=== PATIENT | female | born 1965 | race Caucasian/White ===

== ENCOUNTER 2018-09-04 12:01 | Inpatient (IN) | payer BC ==
[2018-09-04] MEDS ORDERED: BUPIVACAINE HCL/PF (5 MG/ML) 30 ML VIAL IJ ONE (14:10)
[2018-09-04] MEDS ORDERED: MIDAZOLAM HCL 2 MG/2 ML SINGLE DOSE VIAL ONE (14:10)
[2018-09-04] MEDS ORDERED: PROPOFOL 20 ML ONE ×2 (14:56)
[2018-09-04] MEDS ORDERED: ROCURONIUM BROMIDE 50 MG/5 ML VIAL ONE ×2 (14:56→15:00)
[2018-09-04] MEDS ORDERED: fentaNYL CITRATE 250 MCG/5 ML VIAL ONE (14:56)
[2018-09-04] MEDS ORDERED: LIDOCAINE HCL/PF 2% SDV 5ML VIAL ONE (15:00)
[2018-09-04] MEDS ORDERED: BUPIVACAINE HCL 0.25% 125 MG/50 ML VIAL ONE (15:04)
[2018-09-04] MEDS ORDERED: DEXAMETHASONE SOD PHOSPHATE 4 MG/1 ML VIAL ONE (15:40)
[2018-09-04] MEDS ORDERED: KETOROLAC TROMETHAMINE 30 MG/1 ML VIAL ONE (15:40)
[2018-09-04] MEDS ORDERED: ceFAZolin SODIUM 1 GM VIAL ONE (15:40)
[2018-09-04] MEDS ORDERED: ONDANSETRON 4 MG/2 ML VIAL ONE (15:40)
[2018-09-04] MEDS ORDERED: GLYCOPYRROLATE 0.2 MG/1 ML VIAL ONE (16:31)
[2018-09-04] MEDS ORDERED: NEOSTIGMINE METHYLSULFATE 0.5 MG/ML - 10 ML MDV ONE (16:31)
[2018-09-04] MEDS ORDERED: ONDANSETRON 4 MG/2 ML VIAL IVPUSH PRN ×2 (16:55→17:06)
--- NOTE | 2018-09-04 17:01 | OP ---
Operative Note - Note: Operative Date: 09/04/18 Pre-Operative Diagnosis: Morbid Obesity. Elevated LFT Operation: Laparoscopic Vertical Sleeve Gastrectomy. Wedge Bopsy of Left lobe of Liver. Diagnostic Laparoscopy Findings: Greater curve sleeve gastrectomy with #[address] Wedge biopsy of left lobe of liver Post-Operative Diagnosis: Same as Pre-op (Hepatomegaly) Surgeon: Joselito Longoria Cork Pressing Machine Operator: Clemente Kaur Anesthesia: General Specimens Removed: Greater curve of stomach. Wedge biopsy of left lobe of liver Estimated Blood Loss (mls): 30 Operative Report Dictated: Yes
[2018-09-04] MEDS ORDERED: PROMETHAZINE HCL 25 MG/1 ML VIAL IVPUSH PRN (17:06)
[2018-09-04] MEDS: METOCLOPRAMIDE HCL INJECTION 10 MG/2 ML VIAL IVPUSH SCH ×2 (17:15→23:00)
[2018-09-04 17:49] LABS: HEMATOCRIT 40.5 % (32.4-45.2); HEMOGLOBIN 13.5 GM/dl (10.7-15.3); MCH 29.2 pg (25.7-33.7); MCHC 33.2 g/dl (32.0-36.0); MEAN CELL VOLUME 87.9 fl (80-96); MEAN PLT VOLUME 7.5 fl (7.5-11.1); PLATELET COUNT 313 K/MM3 (134-434); RBC 4.61 M/mm3 (3.60-5.2); RDW 12.1 % (11.6-15.6); WHITE BLOOD COUNT 14.6 K/mm3 (4.0-10.8)
[2018-09-04 18:07] LABS: ALBUMIN 3.6 g/dl (3.4-5.0); ALK PHOS 74 U/L (45-117); ANION GAP 13 MMOL/L (8-16); BILIRUBIN,TOTAL 0.9 mg/dl (0.2-1); BLOOD UREA NITROGEN 16 mg/dl (7-18); CALCIUM 8.8 mg/dl (8.5-10); CHLORIDE 104 mmol/L (98-107); CO2 24 mmol/L (21-32); CREATININE 1.1 mg/dl (0.55-1.3); GLUCOSE,RANDOM 158 mg/dl (74-106); POTASSIUM 4.3 mmol/L (3.5-5.1); SGOT/AST 56 U/L (15-37); SGPT/ALT 90 U/L (13-61); SODIUM 141 mmol/L (136-145); TOT PROT 6.4 g/dl (6.4-8.2)
[2018-09-04] MEDS: SODIUM CHLORIDE 1,000 ML IV SCH (18:30)
[2018-09-04] MEDS: FAMOTIDINE 20 MG/50 ML IVPB 20 MG/50 ML MG IVPB SCH (22:00)
[2018-09-04] MEDS: ENOXAPARIN NA (PORCINE) 40 MG/0.4 ML DISP.SYRIN SQ SCH (22:00)
[2018-09-05] MEDS: morphine CARPU-JECT 2 MG/1 ML DISP.SYRIN IVPUSH PRN ×3 (01:16→13:07)
[2018-09-05] MEDS: METOCLOPRAMIDE HCL INJECTION 10 MG/2 ML VIAL IVPUSH SCH ×4 (05:49→23:12)
[2018-09-05 08:52] LABS: HEMATOCRIT 33.6 % (32.4-45.2); HEMOGLOBIN 11.7 GM/dl (10.7-15.3); MCH 30.2 pg (25.7-33.7); MCHC 34.8 g/dl (32.0-36.0); MEAN CELL VOLUME 86.9 fl (80-96); MEAN PLT VOLUME 8.3 fl (7.5-11.1); PLATELET COUNT 299 K/MM3 (134-434); RBC 3.87 M/mm3 (3.60-5.2); RDW 12.1 % (11.6-15.6); WHITE BLOOD COUNT 18.8 K/mm3 (4.0-10.8)
[2018-09-05 08:58] LABS: ALBUMIN 3.4 g/dl (3.4-5.0); ALK PHOS 62 U/L (45-117); ANION GAP 11 MMOL/L (8-16); BILIRUBIN,TOTAL 0.8 mg/dl (0.2-1); BLOOD UREA NITROGEN 24 mg/dl (7-18); CALCIUM 8.5 mg/dl (8.5-10); CHLORIDE 107 mmol/L (98-107); CO2 22 mmol/L (21-32); CREATININE 1.1 mg/dl (0.55-1.3); GLUCOSE,RANDOM 148 mg/dl (74-106); POTASSIUM 4.3 mmol/L (3.5-5.1); SGOT/AST 48 U/L (15-37); SGPT/ALT 79 U/L (13-61); SODIUM 140 mmol/L (136-145); TOT PROT 6.3 g/dl (6.4-8.2)
[2018-09-05] MEDS: FAMOTIDINE 20 MG/50 ML IVPB 20 MG/50 ML MG IVPB SCH ×2 (09:33→21:47)
[2018-09-05] MEDS: ENOXAPARIN NA (PORCINE) 40 MG/0.4 ML DISP.SYRIN SQ SCH (09:33)
--- NOTE | 2018-09-05 10:59 | HP ---
DATE OF ADMISSION: 09/04/2018 CHIEF COMPLAINT: Morbid obesity. HISTORY OF PRESENT ILLNESS: Patient is a 53-year-old woman with a history of morbid obesity for many years despite multiple attempts at dietary weight loss. She received Nutrition, Psychologic, Cardiac, and Medical evaluation and clearance prior to being admitted for elective sleeve gastrectomy surgery. PAST MEDICAL HISTORY: Significant for hypothyroidism. PAST SURGICAL HISTORY: Significant for thyroglossal duct cyst removal. MEDICATIONS: Include Synthroid. ALLERGIES: No allergies to medications. REVIEW OF SYSTEMS: General: Within normal limits. Cardiovascular: Within normal limits. Respiratory: Within normal limits. Gastrointestinal: No nausea. No vomiting. Within normal limits. Genitourinary: Within normal limits. Musculoskeletal: Within normal limits. Neurologic: Within normal limits. PHYSICAL EXAMINATION: General: A 53-year-old female awake, alert, in no acute distress. HEENT: No masses palpated. Lungs: Clear breath sounds bilaterally. Heart: Regular sinus rhythm. Abdomen: Morbidly obese, soft, nontender with palpation. Extremities: No swelling. No edema. IMPRESSION: Morbid obesity. PLAN: Surgery for a laparoscopic vertical sleeve gastrectomy with possible open vertical sleeve gastrectomy. GALINA CHAVEZ M.D. [id number]
--- NOTE | 2018-09-05 11:31 | OP ---
DATE OF OPERATION: 09/04/2018 PREOPERATIVE DIAGNOSIS: 1. Morbid obesity. 2. Elevated liver function tests. POSTOPERATIVE DIAGNOSIS: 1. Morbid obesity. 2. Elevated liver function tests. 3. Hepatomegaly. PROCEDURE PERFORMED: 1. Laparoscopic vertical sleeve gastrectomy. 2. Wedge biopsy of the left lobe of the liver. 3. Diagnostic laparoscopy. OPERATING SURGEON: Joselito Longoria MD LEAD TRAINER: Clemente Kaur MD ANESTHESIA: General. OPERATIVE PROCEDURE: The patient was brought into the operating room, placed on the OR table in supine position. All precautions were taken initially including padding for the back and the feet, and Venodyne boots were placed on both lower extremities. At that point, the abdomen was prepped and draped in the usual manner. A Veress needle was placed in the left upper quadrant, and a pneumoperitoneum was established. A No. 5 bladeless trocar was placed in the left upper quadrant. Through that trocar, a laparoscopic camera was placed. Under direct vision, a No. 15 bladeless trocar was placed in the midline in the supraumbilical position followed by a No. 5 bladeless trocar in the right upper quadrant and a No. 5 bladeless trocar below the left costal margin. A Artie Liver Retractor was then placed in the epigastrium to retract the left lobe of the liver. The patient was then placed in 20-degree reverse Trendelenburg position by Anesthesia. The left lobe of the liver was extremely enlarged and combined with the elevated liver function test, a wedge biopsy was performed. On the edge of the left lobe of the liver, the LigaSure device was used to take a triangularly shaped wedge portion of liver, both capsule and parenchyma were sent off the field as specimen to Pathology. Some very minor oozing from the liver parenchyma was easily controlled with electrocautery. At this juncture, the pylorus was noted on the distal stomach, and 6 cm were measured proximally from there. At this juncture, the operating surgeon lifted the stomach towards the anterior abdominal wall, and the real estate executive assistant surgeon retracted the gastrocolic ligament inferiorly. The LigaSure device was then used to dissect the gastrocolic ligament off the greater curve of the stomach. This continued in a superior and vertical direction including dissecting the short gastric vessel until the final short gastric vessel between the superior pole, the spleen, the proximal fundus was divided. At this juncture, the bougie, which was a No. 36 size, was advanced by Anesthesia along the lesser curve and held there to the distal stomach. A series of trisha were now performed with the first 2 trisha being black-load trisha, 6 cm in length, along the bougie. This was followed by a series of purple load trisha also 6 cm in length, and also along the bougie, until the final staple was fired in the left upper quadrant, and the greater curve was now completely detached from the lesser curve. It should be noted that prior to firing each staple, both the anterior and posterior andres were checked that they were intact, and then, the area of esophagogastric junction, approximately 1 to 1.5 cm of serosa remained on the anterior and posterior surfaces. During this whole stapling portion, the real estate executive assistant surgeon was retracting the resected greater curve of the stomach laterally, inferiorly for proper retraction. At this juncture, saline was placed around the staple line. Anesthesia inserted air into the bougie, which showed the entire stomach distended down to the pylorus. No leaks were noted. At this juncture, the resected stomach was removed through the No. 15 trocar site and sent off the field as specimen to Pathology. A Surgicel was placed along the staple line to prevent any postoperative bleeding, and then, a No.15 midline trocar with endo-closure device to prevent internal hernia and to prevent bleeding. Under direct vision, all trocars were removed and pneumoperitoneum was released. All trocar sites then received 0.25% Marcaine. The No. 15 midline was first closed with 3-0 Vicryl in the subcutaneous tissue, and then, all trocar sites were closed with 4-0 Biosyn in a subcuticular fashion. Dressings were applied. Patient awoke from anesthesia and transferred out of the operating room to the recovery room in stable condition. ANESTHESIA: General. SURGEON: Joselito Longoria MD LEAD TRAINER: Clemente Kaur MD EXPECTED BLOOD LOSS: 30 mL. Patient transferred to the recovery room in stable condition. Nehal MCCARTHY/[id number]
--- NOTE | 2018-09-05 13:00 | EKG ---
Test Reason : Blood Pressure : / mmHG Vent. Rate : 125 BPM Atrial Rate : 125 BPM P-R Int : 148 ms QRS Dur : 084 ms QT Int : 318 ms P-R-T Axes : 025 038 -08 degrees QTc Int : 458 ms SINUS TACHYCARDIA OTHERWISE NORMAL ECG WHEN COMPARED WITH ECG OF 21-DEC-1999 14:21, VENT. RATE HAS INCREASED BY 50 BPM T WAVE AMPLITUDE HAS DECREASED IN ANTEROLATERAL LEADS Confirmed by MD DEBRA, JOHN ([id number]) on 09/05/2018 12:59:55 PM Referred By: Joselito Longoria Confirmed By:JOHN RICHARDSON MD
[2018-09-05] MEDS ORDERED: ACETAMINOPHEN 1000 MG/100 ML VIAL (NON FORMULARY) IVPB ONE (15:15)
--- NOTE | 2018-09-05 15:17 | PN ---
Progress Note (short form) - Note Progress Note: POD 1 s/p gastric sleeve. Pt has pain that is well-controlled with morphine, but states that she does not like the feeling of being sedated. No N/V. Will add a dose of ofirmev for pain control for now, in hopes of reducing the sedation. Advised pt to request morphine should the ofirmev not be sufficient for pain control.
[2018-09-05 15:18] LABS: HEMOGLOBIN 9.6 GM/dl (10.7-15.3); MCH 29.4 pg (25.7-33.7); MCHC 34.2 g/dl (32.0-36.0); MEAN CELL VOLUME 86.1 fl (80-96); PLATELET COUNT 369 K/MM3 (134-434); RBC 3.25 M/mm3 (3.60-5.2); RDW 12.1 % (11.6-15.6); WHITE BLOOD COUNT 22.4 K/mm3 (4.0-10.8)
[2018-09-05 15:35] LABS: ALBUMIN 3.3 g/dl (3.4-5.0); ALK PHOS 55 U/L (45-117); ANION GAP 9 MMOL/L (8-16); BILIRUBIN,TOTAL 0.9 mg/dl (0.2-1); BLOOD UREA NITROGEN 27 mg/dl (7-18); CALCIUM 8.2 mg/dl (8.5-10); CHLORIDE 110 mmol/L (98-107); CO2 21 mmol/L (21-32); CREATININE 1.2 mg/dl (0.55-1.3); GLUCOSE,RANDOM 197 mg/dl (74-106); POTASSIUM 4.3 mmol/L (3.5-5.1); SGOT/AST 40 U/L (15-37); SGPT/ALT 66 U/L (13-61); SODIUM 140 mmol/L (136-145); TOT PROT 5.9 g/dl (6.4-8.2)
--- NOTE | 2018-09-05 16:37 | RAPID ---
Physical Examination Vital Signs: Summoned to patient's room. Patient lying supine in the bathroom. She was awake , said her name, answered questions. Able to move all extremities, followed commands. Advised patient was in bed, felt the need to move her bowels. Made it to the toilet where she syncopized. RN was present and lowered patient to the floor, did not hit her head. Patient is POD #[address] Longoria on the floor and was present for this rapid response. Vitals: HR General: A&Ox3. Pale. Skin clammy. Lungs: CT CV: S1, S2, rrr Ext: SCDs on; 2+ pulses, no edema Assessment & Plan Vasovagal episode --BP 148/59, p 152, SpO2 97% on 2L --IV fluids running --Dr. Longoria earlier ordered 2U PRBC, pending --fall protocol --CTA to r/o PE Labs: CBC, BMP 09/05/18 14:44 09/05/18 14:44
[2018-09-05] MEDS ORDERED: SODIUM CHLORIDE 1,000 ML IV STA ×2 (17:35→18:13)
[2018-09-05] MEDS: SODIUM CHLORIDE 1,000 ML IV SCH (18:05)
--- NOTE | 2018-09-05 18:07 | CONSULT ---
Consult - History of Present Illness History of Present Illness: 53 y/o femal with pmh hypothyroidism s/p gastric sleeve with an episode of near syncope/hpotension pt c/o weakness abd pain no cp or sob - Past Medical History Cardio/Vascular: No: CAD, CHF, HTN, Hyperlipdemia Pulmonary: No: COPD Renal/: No: Renal Inusuff ...LMP Comment: 4 YEARS AGO ...: No Endocrine: Yes: Hypothyroidism - Past Surgical History Additional Surgical History: Gastric sleeve - Alcohol/Substance Use Hx Alcohol Use: Yes (SOCIALLY) - Smoking History Smoking history: Unknown if ever smoked Home Medications - Allergies Allergies/Adverse Reactions: Allergies Allergy/AdvReac Type Severity Reaction Status Date / Time No Known Allergies Allergy Verified 09/01/18 09:50 - Home Medications Home Medications: Ambulatory Orders Levothyroxine Sodium [Synthroid] 137 mcg PO DAILY 09/01/18 Oxycodone HCl/Acetaminophen [Percocet 5-325 mg Tablet] 1 tab PO Q6H PRN #20 tablet MDD 4 09/04/18 Review of Systems - Review of Systems Constitutional: reports: Weakness Cardiovascular: denies: Chest Pain Respiratory: denies: SOB Gastrointestinal: reports: Abdominal Pain Physical Exam Vital Signs: Vital Signs Temperature 99.8 F H 09/05/18 06:00 Pulse Rate 115 H 09/05/18 17:20 Respiratory Rate 20 09/05/18 17:20 Blood Pressure 114/55 L 09/05/18 17:20 O2 Sat by Pulse Oximetry (%) 95 09/05/18 08:40 Cardiovascular: Yes: Tachycardia, S1, S2 Respiratory: Yes: Regular, CTA Bilaterally Gastrointestinal: Yes: Normal Bowel Sounds, Soft, Tenderness Edema: No Labs: CBC, BMP 09/05/18 14:44 09/05/18 14:44 Problem List - Problems (1) Anemia Assessment/Plan: due to postop bleed transfuse prbc follow labs Code(s): D64.9 - ANEMIA, UNSPECIFIED (2) Syncope and collapse Assessment/Plan: as above Code(s): R55 - SYNCOPE AND COLLAPSE (3) Palpitation Assessment/Plan: due to anemia Code(s): R00.2 - PALPITATIONS (4) S/P gastric surgery Assessment/Plan: per surgery d/w dr benson Code(s): Z98.890 - OTHER SPECIFIED POSTPROCEDURAL STATES
[2018-09-05 18:16] LABS: HEMATOCRIT 22.2 % (32.4-45.2); HEMOGLOBIN 7.6 GM/dl (10.7-15.3); MCH 30.1 pg (25.7-33.7); MCHC 34.4 g/dl (32.0-36.0); MEAN CELL VOLUME 87.7 fl (80-96); MEAN PLT VOLUME 6.9 fl (7.5-11.1); PLATELET COUNT 296 K/MM3 (134-434); RBC 2.53 M/mm3 (3.60-5.2); RDW 12.2 % (11.6-15.6); WHITE BLOOD COUNT 22.8 K/mm3 (4.0-10.8)
[2018-09-05] MEDS ORDERED: ACETAMINOPHEN 1000 MG/100 ML VIAL (NON FORMULARY) IVPB PRN (18:20)
[2018-09-05 19:49] LABS: PLATELET ESTIMATE ADEQUATE
--- NOTE | 2018-09-05 20:20 | PN ---
Progress Note (short form) - Note Progress Note: POD#1 Pt with difficult morning, day [id number] BP-130-150 systolic Pt appears pale H/H- 11.7 in AM, 9.6 at 3PM, 7.6 at 6PM Now receiving 2nd unit PRBC Pt had fainting spell going to bathroon for diarrhea (possibly PO contrast related) Discussed situation with family at length Discussed hope that 3 units PRBC would stabilize patient, but if not may need to operate to control bleeding.
[2018-09-05 22:32] LABS: BASO % 0.1 % (0-2.0); HEMATOCRIT 30.1 % (32.4-45.2); LYMPH % 9.4 % (8-40); MCH 29.5 pg (25.7-33.7); MCHC 33.1 g/dl (32.0-36.0); MEAN CELL VOLUME 89.1 fl (80-96); MEAN PLT VOLUME 7.7 fl (7.5-11.1); MONO % 8.7 % (3.8-10.2); NEUT % 81.8 % (42.8-82.8); PLATELET COUNT 280 K/MM3 (134-434); RBC 3.38 M/mm3 (3.60-5.2); RDW 13.3 % (11.6-15.6); WHITE BLOOD COUNT 22.9 K/mm3 (4.0-10.0)
[2018-09-05 22:57] LABS: ALBUMIN 2.7 g/dl (3.4-5.0); ALK PHOS 53 U/L (45-117); ANION GAP 9 MMOL/L (8-16); BILIRUBIN,TOTAL 1.1 mg/dL (0.2-1); BLOOD UREA NITROGEN 28 mg/dL (7-18); CALCIUM 7.6 mg/dL (8.5-10.1); CHLORIDE 113 mmol/L (98-107); CO2 20 mmol/L (21-32); CREATININE 1.1 mg/dL (0.55-1.3); GLUCOSE,RANDOM 198 mg/dL (74-106); POTASSIUM 4.6 mmol/L (3.5-5.1); SGOT/AST 23 U/L (15-37); SGPT/ALT 59 U/L (13-61); SODIUM 142 mmol/L (136-145); TOT PROT 5.3 g/dl (6.4-8.2)
[2018-09-05] MEDS: morphine SULFATE 4 MG/ML VIAL IVPUSH PRN (23:03)
[2018-09-05] MEDS ORDERED: VANCOMYCIN 1 GM in D5W (PRE-DOCKED) 1,000 MG/250 ML IVPB ONE (23:17)
--- NOTE | 2018-09-05 23:17 | CONSULT ---
Consultation: REQUESTING PROVIDER: CONSULT REQUEST: We have been asked to medically evaluate this patient for ( Syncope S/P Gastric sleeve ). HISTORY OF PRESENT ILLNESS: 53 year old female with h.o hypothyroidism , POD#1 gastric sleeve presented to ICU from [facility] after syncopal episode and was found to have low HGb 7.6 admitted for further evaluation. pt syncopised on her way to bath room but did not hit her head , rapid response was called and fall protocol was initiated at [facility]. pt denies nay fever, chills, but reports nausea but no vomiting , she denies any chest pain or coughing but reports palpitation. reports diffuse abdominal pain, denies any urinary symptoms , pt reports 2 episode of diarrhea after she drink the contrast . denies any leg pain. pt received 3L bolus and 3 PRBC and improved her HGb to 10 pt is afebrile but sinus tachy to 135 REVIEW OF SYSTEMS: CONSTITUTIONAL: Absent: fever, chills, diaphoresis, generalized weakness, malaise, loss of appetite, weight change HEENT: Absent: rhinorrhea, nasal congestion, throat pain, throat swelling, difficulty swallowing, mouth swelling, ear pain, eye pain, visual changes CARDIOVASCULAR: Absent: chest pain, syncope, palpitations, irregular heart rate, lightheadedness , peripheral edema RESPIRATORY: Absent: cough, shortness of breath, dyspnea with exertion, orthopnea, wheezing, stridor, hemoptysis GASTROINTESTINAL: Absent: abdominal pain, abdominal distension, nausea, vomiting, diarrhea after the contrast , constipation, melena, hematochezia GENITOURINARY: Absent: dysuria, frequency, urgency, hesitancy, hematuria, flank pain, genital pain MUSCULOSKELETAL: Absent: myalgia, arthralgia, joint swelling, back pain, neck pain SKIN: Absent: rash, itching, pallor HEMATOLOGIC/IMMUNOLOGIC: Absent: easy bleeding, easy bruising, lymphadenopathy, frequent infections ENDOCRINE: Absent: unexplained weight gain, unexplained weight loss, heat intolerance, cold intolerance NEUROLOGIC: Absent: headache, focal weakness or paresthesias, dizziness, unsteady gait, seizure, mental status changes, bladder or bowel incontinence PSYCHIATRIC: Absent: anxiety, depression, suicidal or homicidal ideation, hallucinations. PHYSICAL EXAMINATION Vital Signs - 24 hr 09/05/18 09/05/18 09/05/18 01:47 06:00 08:40 Temperature 98.8 F 99.8 F H Pulse Rate 112 H 124 H Respiratory 20 20 Rate Blood Pressure 139/79 147/73 O2 Sat by Pulse 92 L 92 L 95 Oximetry (%) 09/05/18 09/05/18 09/05/18 15:50 16:00 16:30 Temperature Pulse Rate 152 H 128 H 118 H Respiratory 20 20 20 Rate Blood Pressure 148/59 L 147/52 L 129/61 O2 Sat by Pulse Oximetry (%) 09/05/18 09/05/18 09/05/18 17:06 17:20 18:26 Temperature Pulse Rate 121 H 115 H Respiratory 20 20 Rate Blood Pressure 91/41 L 114/55 L 148/76 O2 Sat by Pulse 98 Oximetry (%) GENERAL: Awake, alert, and fully oriented,in mild distress HEAD: Normal with no signs of trauma. EYES: Pupils equal, round and reactive to light, extraocular movements intact, NECK: supple LUNGS: decrease breath sound at the bases. No wheezes, and no crackles. No accessory muscle use. HEART: ST, normal S1 and S2 without murmur, rub or gallop. ABDOMEN: Soft, diffuse tenderness mild distension ,normoactive bowel sounds, no guarding,4 surgical incision covered with gauze UPPER EXTREMITIES: 2+ pulses, warm, well-perfuse. No cyanosis. LOWER EXTREMITIES: 2+ pulses, warm, well-perfuse. No calf tenderness. +1 peripheral edema. NEUROLOGICAL: no focal deficit . Normal speech. PSYCHIATRIC: Cooperative. Good eye contact. Appropriate mood and affect. SKIN: Warm, dry, normal turgor, Laboratory Results - last 24 hr 09/05/18 09/05/18 09/05/18 07:55 07:55 14:44 WBC 18.8 H 22.4 H RBC 3.87 3.25 L Hgb 11.7 9.6 L Hct 33.6 D 28.0 L D MCV 86.9 86.1 MCH 30.2 29.4 MCHC 34.8 34.2 RDW 12.1 12.1 Plt Count 299 369 MPV 8.3 8.0 Absolute Neuts (auto) 19.4 Neutrophils % No Result Required. Neutrophils % (Manual) 87.0 H Band Neutrophils % 1.0 Lymphocytes % No Result Required. Lymphocytes % (Manual) 8.0 Monocytes % Monocytes % (Manual) 4 Eosinophils % Basophils % Nucleated RBC % Platelet Estimate Adequate Sodium 140 Potassium 4.3 Chloride 107 Carbon Dioxide 22 Anion Gap 11 BUN 24 H Creatinine 1.1 Creat Clearance w eGFR 52.36 POC Glucometer Random Glucose 148 H Calcium 8.5 Total Bilirubin 0.8 AST 48 H ALT 79 H Alkaline Phosphatase 62 D Creatine Kinase Troponin I Total Protein 6.3 L Albumin 3.4 Blood Type Antibody Screen Crossmatch 09/05/18 09/05/18 09/05/18 14:44 14:44 14:44 WBC RBC Hgb Hct MCV MCH MCHC RDW Plt Count MPV Absolute Neuts (auto) Neutrophils % Neutrophils % (Manual) Band Neutrophils % Lymphocytes % Lymphocytes % (Manual) Monocytes % Monocytes % (Manual) Eosinophils % Basophils % Nucleated RBC % Platelet Estimate Sodium 140 Potassium 4.3 Chloride 110 H Carbon Dioxide 21 Anion Gap 9 BUN 27 H Creatinine 1.2 Creat Clearance w eGFR 47.36 POC Glucometer Random Glucose 197 H Calcium 8.2 L Total Bilirubin 0.9 AST 40 H ALT 66 H Alkaline Phosphatase 55 Creatine Kinase Cancelled 95 Troponin I Cancelled < 0.03 Total Protein 5.9 L Albumin 3.3 L Blood Type Antibody Screen Crossmatch 09/05/18 09/05/18 09/05/18 16:08 16:15 16:20 WBC RBC Hgb Hct MCV MCH MCHC RDW Plt Count MPV Absolute Neuts (auto) Neutrophils % Neutrophils % (Manual) Band Neutrophils % Lymphocytes % Lymphocytes % (Manual) Monocytes % Monocytes % (Manual) Eosinophils % Basophils % Nucleated RBC % Platelet Estimate Sodium Potassium Chloride Carbon Dioxide Anion Gap BUN Creatinine Creat Clearance w eGFR POC Glucometer 199 Random Glucose Calcium Total Bilirubin AST ALT Alkaline Phosphatase Creatine Kinase Troponin I Total Protein Albumin Blood Type O POSITIVE O POSITIVE Antibody Screen Negative Crossmatch See Detail 09/05/18 09/05/18 09/05/18 18:00 22:20 22:20 WBC 22.8 H 22.9 H RBC 2.53 L 3.38 L Hgb 7.6 L 10.0 L Hct 22.2 L D 30.1 L MCV 87.7 89.1 MCH 30.1 29.5 MCHC 34.4 33.1 RDW 12.2 13.3 Plt Count 296 280 MPV 6.9 L 7.7 Absolute Neuts (auto) 18.7 H Neutrophils % No Result Required. 81.8 Neutrophils % (Manual) Band Neutrophils % Lymphocytes % No Result Required. 9.4 Lymphocytes % (Manual) Monocytes % 8.7 Monocytes % (Manual) Eosinophils % 0.0 Basophils % 0.1 Nucleated RBC % 0 Platelet Estimate Sodium 142 Potassium 4.6 Chloride 113 H Carbon Dioxide 20 L Anion Gap 9 BUN 28 H Creatinine 1.1 Creat Clearance w eGFR 52.36 POC Glucometer Random Glucose 198 H Calcium 7.6 L Total Bilirubin 1.1 H AST 23 ALT 59 Alkaline Phosphatase 53 Creatine Kinase Troponin I Total Protein 5.3 L Albumin 2.7 L Blood Type Antibody Screen Crossmatch Active Medications Generic Name Dose Route Start Last Admin Trade Name Freq PRN Reason Stop Dose Admin Acetaminophen 1,000 mg 09/05/18 18:20 Ofirmev Injection - IVPB Q6H PRN PAIN LEVEL 1-5 Famotidine/Sodium Chloride 20 mg in 50 mls @ 100 mls/hr 09/04/18 22:00 21:47 Pepcid 20 Mg Premixed Ivpb - IVPB 100 mls/hr BID DMITRY Administration Sodium Chloride 1,000 mls @ 150 mls/hr 09/04/18 17:00 09/05/18 18:05 Normal Saline - IV 150 mls/hr ASDIR DMITRY Administration Metoclopramide HCl 10 mg 09/04/18 17:00 09/05/18 18:05 Reglan Injection - IVPUSH Not Given Q6H DMITRY Morphine Sulfate 2 mg 09/05/18 22:50 09/05/18 23:03 Morphine Sulfate IVPUSH 2 mg Q3H PRN Administration PAIN LEVEL 1-5 Ondansetron HCl 4 mg 09/04/18 16:55 09/04/18 17:25 Zofran Injection IVPUSH 4 mg Q4H PRN Administration NAUSEA AND/OR VOMITING CBC, BMP 09/05/18 22:20 09/05/18 22:20 chest CTA with no PE but small to moderate B/L pleural effusion and compressive atelectasis /or pna CT A/P with with hematomoa adajacent to gastric S.p gastric sleeve but no extravasation ASSESSMENT/PLAN: 53 year old female with h.o hypothyroidism , POD#1 gastric sleeve presented to ICU from [facility] after syncopal episode and was found to have low HGb 7.6 admitted for further evaluation # Leucocytosis :possible reactive vs PNA will r.o any surgical leakage , pt is afebrile , will send Blood cx and start abx prophylactic vanc/zosyn , # Hypotension , syncope,with low hgb will r.o Acute blood loss , will do CTA Abdomen/pelvic and chest with contrast # Anemia R.O Blood loss S.P 3 units PRBCS # Tachycardia due to pain vs low hgb vs over loaded as pt receive 3 L of NS boluses , R.O PE , TSH stat # POD#1 S.P gastric sleeve # Mild MARJORIE , continue wit IV fluids # Lactic acidosis LA 3.9 , repeat in AM , on IV fluids change to RL @ 125 after the 2nd procedure Plan : * pain control with IV Tylenol and morphine as needed * IV fluids NS @ 75 (was on 100 CC) * monitor BP, cardiac care unit nurse , * monitor H/H * hill cx blood and urine , will start abx prophylactic after blood cx (vanco/ zosyn )discussed with Dr Tariq and Dr Longoria * maintain MAP > 65 * maitain o2 sat > 90% * CTA A/P/chest to R.o bleeding/leakage vs PE * SCDS , TEDS for DVTS proph * US LE R.O DVTS * NPO * monitor lytes and replenished as needed # B/L pleural effusion with atelectasis * incentive spirometry * cont abx # Gastric adjacent hematoma * noted om imaging occupational health nursing director reading * increase IV fluids NS to [address] Longoria , dr Longoria is at bed side and would like to take the pt to OR # ELvated Blood sugar , A1c in AM Dispo: We will continue to follow the patient. Thank you for this consultative opportunity. Note : pt came out of operation room at 6 am , intubated sedated on propofol Vent setting : AC , PEEP 5 , TV 600, , fio2 50 % , RR 14 she received total of 3 units during the procedure (3 units before the 2nd procedure ) vitals : HR 115, BP157/95 , o2 sat 99 % started RL @ 125 Visit type - Emergency Visit Emergency Visit: No - New Patient This patient is new to me today: Yes Date on this admission: 09/06/18 - Critical Care Critical Care patient: Yes Total Critical Care Time (in minutes): 45 Critical Care Statement: The care of this patient involved high complexity decision making to prevent further life threatening deterioration of the patient 's condition and/or to evaluate & treat vital organ system(s) failure or risk of failure.
[2018-09-05 23:39] LABS: HEMATOCRIT 28.9 % (32.4-45.2); HEMOGLOBIN 9.5 GM/dL (10.7-15.3); MCH 29.2 pg (25.7-33.7); MCHC 32.9 g/dl (32.0-36.0); MEAN CELL VOLUME 88.9 fl (80-96); MEAN PLT VOLUME 8.4 fl (7.5-11.1); PLATELET COUNT 256 K/MM3 (134-434); RBC 3.26 M/mm3 (3.60-5.2); RDW 13.3 % (11.6-15.6)
[2018-09-05] MEDS ORDERED: PIPERACILLIN/TAZOB 2.25 GM 2.25 GM in DEXTROSE 5%-WATER - 50 ML IVPB SCH (23:45)
[2018-09-06] LABS: INR 1.18 (0.83-1.09)
[2018-09-06 00:03] LABS: ACTIVATED PTT 25.1 SECONDS (25.2-36.5)
[2018-09-06 00:09] LABS: ALBUMIN 2.6 g/dl (3.4-5.0); ALK PHOS 50 U/L (45-117); ANION GAP 9 MMOL/L (8-16); BILIRUBIN,TOTAL 0.9 mg/dL (0.2-1); BLOOD UREA NITROGEN 28 mg/dL (7-18); CALCIUM 7.6 mg/dL (8.5-10.1); CHLORIDE 114 mmol/L (98-107); CO2 20 mmol/L (21-32); CREATININE 1.1 mg/dL (0.55-1.3); GLUCOSE,RANDOM 191 mg/dL (74-106); POTASSIUM 4.6 mmol/L (3.5-5.1); SGOT/AST 21 U/L (15-37); SGPT/ALT 55 U/L (13-61); SODIUM 143 mmol/L (136-145); TOT PROT 5.1 g/dl (6.4-8.2)
[2018-09-06 00:55] LABS: URINE APPEARANCE CLEAR; URINE BILIRUBIN NEGATIVE (NEGATIVE); URINE COLOR YELLOW; URINE GLUCOSE (UA) NEGATIVE (NEGATIVE); URINE KETONE NEGATIVE (NEGATIVE); URINE LEUK ESTERASE NEGATIVE (NEGATIVE); URINE NITRITE NEGATIVE (NEGATIVE); URINE PROTEIN NEGATIVE (NEGATIVE); URINE UROBILINOGEN 0.2 mg/dL (0.2-1.0)
[2018-09-06] MEDS ORDERED: PIPERACILLIN/TAZOBACTAM 2.25 GM VIAL IVPB ONE ×2 (01:55→09:15)
[2018-09-06] MEDS ORDERED: DEXTROSE 5%-WATER - 50 ML IVPB ONE ×3 (01:55→17:47)
[2018-09-06] MEDS: PIPERACILLIN/TAZOB 2.25 GM 2.25 GM in DEXTROSE 5%-WATER - 50 ML IVPB SCH ×3 (01:58→20:38)
[2018-09-06] MEDS ORDERED: ROCURONIUM BROMIDE 50 MG/5 ML VIAL ONE ×3 (02:08→03:33)
[2018-09-06] MEDS ORDERED: LIDOCAINE HCL/PF 2% SDV 5ML VIAL ONE (02:10)
[2018-09-06] MEDS ORDERED: ETOMIDATE 20 MG/10 ML AMPUL IVPUSH ONE (02:10)
[2018-09-06] MEDS ORDERED: PROPOFOL 20 ML ONE ×2 (02:55)
[2018-09-06] MEDS ORDERED: DEXAMETHASONE SOD PHOSPHATE 4 MG/1 ML VIAL ONE (03:02)
[2018-09-06] MEDS ORDERED: MIDAZOLAM HCL 2 MG/2 ML SINGLE DOSE VIAL ONE (05:28)
--- NOTE | 2018-09-06 05:43 | OP ---
Operative Note - Note: Operative Date: 09/06/18 Pre-Operative Diagnosis: Intra-abdominal Hemorrhage Operation: Diagnostic Laparoscopy. Control of Imtra-abdominal hemorrhage Findings: Large amount of blood clots on resected greater curve of stomach and short gastric vessels. Staple line oversewed in 1 area secondary to bleeding Post-Operative Diagnosis: Same as Pre-op Surgeon: Joselito Longoria Online Affiliate Marketing Manager: Reji Aquino Anesthesia: General Specimens Removed: blood clots Estimated Blood Loss (mls): 1,200 Operative Report Dictated: No
[2018-09-06] MEDS ORDERED: SODIUM CHLORIDE 1,000 ML IV SCH ×2 (05:45→08:43)
[2018-09-06] MEDS ORDERED: PROPOFOL 1,000,000 MCG/100 ML VIAL IVPB SCH (06:00)
[2018-09-06] MEDS ORDERED: LACTATED RINGERS SOLUTION 1,000 ML IV SCH (06:00)
[2018-09-06] MEDS: METOCLOPRAMIDE HCL INJECTION 10 MG/2 ML VIAL IVPUSH SCH ×4 (07:18→22:32)
--- NOTE | 2018-09-06 07:25 | PN ---
Progress Note, Physician - Current Medication List Current Medications: Active Medications Acetaminophen (Ofirmev Injection -) 1,000 mg IVPB Q6H PRN PRN Reason: PAIN LEVEL 1-5 Fentanyl (Sublimaze Injection -) 50 mcg IVPUSH [id number] PRN PRN Reason: PAIN-PACU ORDER X 4 DOSES ONLY Famotidine/Sodium Chloride (Pepcid 20 Mg Premixed Ivpb -) 20 mg in 50 mls @ 100 mls/hr IVPB BID DMITRY Last Admin: 09/05/18 21:47 Dose: 100 mls/hr Sodium Chloride (Normal Saline -) 1,000 mls @ 150 mls/hr IV ASDIR DMITRY Last Admin: 09/05/18 18:05 Dose: 150 mls/hr Piperacillin Sod/Tazobactam (Sod 2.25 gm/ Dextrose) 50 mls @ 100 mls/hr IVPB Q8H-IV DMITRY; Protocol Piperacillin Sod/Tazobactam (Sod 2.25 gm/ Dextrose) 50 mls @ 100 mls/hr IVPB Q8H DMITRY; Protocol Stop: 09/06/18 16:14 Last Admin: 09/06/18 01:58 Dose: 100 mls/hr Famotidine/Sodium Chloride (Pepcid 20 Mg Premixed Ivpb -) 50 mls @ 100 mls/hr IVPB BID DMITRY Sodium Chloride (Normal Saline -) 1,000 mls @ 150 mls/hr IV ASDIR DMITRY Lactated Ringer's (Lactated Ringers Solution) 1,000 mls @ 125 mls/hr IV ASDIR DMITRY Propofol (Diprivan -) 1,000,000 mcg in 100 mls @ 6.886 mls/hr IVPB TITR DMITRY; Protocol Stop: 09/07/18 05:59 Metoclopramide HCl (Reglan Injection -) 10 mg IVPUSH Q6H DMITRY Last Admin: 09/06/18 07:18 Dose: Not Given Morphine Sulfate (Morphine Sulfate) 2 mg IVPUSH Q3H PRN PRN Reason: PAIN LEVEL 1-5 Last Admin: 09/05/18 23:03 Dose: 2 mg Ondansetron HCl (Zofran Injection) 4 mg IVPUSH Q4H PRN PRN Reason: NAUSEA AND/OR VOMITING Last Admin: 09/04/18 17:25 Dose: 4 mg - Objective Vital Signs: Vital Signs Temperature 96.8 F L 09/06/18 06:45 Pulse Rate 116 H 09/06/18 07:00 Respiratory Rate 16 09/06/18 07:00 Blood Pressure 139/85 09/06/18 07:00 O2 Sat by Pulse Oximetry (%) 94 L 09/06/18 06:09 Labs: INR, PTT INR 1.18 (0.83-1.09) H 09/05/18 23:15 Problem List - Problems (1) S/P gastric surgery Assessment/Plan: per surgery d/w dr benson Operative Date: 09/06/18 Pre-Operative Diagnosis: Intra-abdominal Hemorrhage Operation: Diagnostic Laparoscopy. Control of Imtra-abdominal hemorrhage Findings: Large amount of blood clots on resected greater curve of stomach and short gastric vessels. Staple line oversewed in 1 area secondary to bleeding Post-Operative Diagnosis: Same as Pre-op Extubation per icu team Code(s): Z98.890 - OTHER SPECIFIED POSTPROCEDURAL STATES (2) Anemia Assessment/Plan: due to postop bleed--see above transfused prbc--6 units follow labs Code(s): D64.9 - ANEMIA, UNSPECIFIED (3) Syncope and collapse Assessment/Plan: Due to hypotension monitor Code(s): R55 - SYNCOPE AND COLLAPSE (4) Palpitation Assessment/Plan: due to anemia improving icu monitoring cta and duplex neg Code(s): R00.2 - PALPITATIONS (5) Leukocytosis Assessment/Plan: maybe reactive improving cultures done on abx id consult Code(s): D72.829 - ELEVATED WHITE BLOOD CELL COUNT, UNSPECIFIED
[2018-09-06 07:51] LABS: BASO % 0.3 % (0-2.0); HEMATOCRIT 37.4 % (32.4-45.2); HEMOGLOBIN 12.9 GM/dL (10.7-15.3); LYMPH % 11.6 % (8-40); MCH 30.5 pg (25.7-33.7); MCHC 34.4 g/dl (32.0-36.0); MEAN CELL VOLUME 88.5 fl (80-96); MONO % 7.1 % (3.8-10.2); PLATELET COUNT 152 K/MM3 (134-434); RBC 4.22 M/mm3 (3.60-5.2); RDW 13.6 % (11.6-15.6); WHITE BLOOD COUNT 19.4 K/mm3 (4.0-10.0)
[2018-09-06 08:10] LABS: ALBUMIN 2.5 g/dl (3.4-5.0); ALK PHOS 50 U/L (45-117); ANION GAP 6 MMOL/L (8-16); BILIRUBIN,DIRECT 0.6 mg/dL (0.0-0.2); BILIRUBIN,TOTAL 1.1 mg/dL (0.2-1); BLOOD UREA NITROGEN 22 mg/dL (7-18); CALCIUM 7.4 mg/dL (8.5-10.1); CHLORIDE 113 mmol/L (98-107); CO2 22 mmol/L (21-32); GLUCOSE,RANDOM 167 mg/dL (74-106); MAGNESIUM 2.1 mg/dL (1.8-2.4); PHOSPHOROUS 2.3 mg/dL (2.5-4.9); POTASSIUM 4.6 mmol/L (3.5-5.1); SGOT/AST 51 U/L (15-37); SGPT/ALT 79 U/L (13-61); SODIUM 141 mmol/L (136-145); TOT PROT 5.1 g/dl (6.4-8.2)
--- NOTE | 2018-09-06 08:25 | EKG ---
Test Reason : Blood Pressure : / mmHG Vent. Rate : 122 BPM Atrial Rate : 122 BPM P-R Int : 130 ms QRS Dur : 080 ms QT Int : 334 ms P-R-T Axes : 039 046 009 degrees QTc Int : 475 ms SINUS TACHYCARDIA POSSIBLE LEFT ATRIAL ENLARGEMENT CANNOT RULE OUT ANTERIOR INFARCT , AGE UNDETERMINED ABNORMAL ECG WHEN COMPARED WITH ECG OF 05-SEP-2018 10:06, NO SIGNIFICANT CHANGE WAS FOUND Confirmed by KIRSTY BRICEÑO, FREDRICK ([id number]) on 09/06/2018 8:25:22 AM Referred By: Joselito Longoria Confirmed By:FREDRICK LOFTON MD
--- NOTE | 2018-09-06 08:31 | PN ---
Physical Exam: SUBJECTIVE: Patient seen and examined at bedside this morning. Patient came back from OR at 6am this morning, still intubated and sedated. s/p diagnostic Laparoscopy and control of Intra-abdominal hemorrhage. Received 7 units of pRBC in total overnight. [facility] vent: 14/600/50%/5 On Propofol at 25 OBJECTIVE: Vital Signs Temperature 96.8 F L 09/06/18 06:45 Pulse Rate 116 H 09/06/18 07:00 Respiratory Rate 16 09/06/18 07:00 Blood Pressure 139/85 09/06/18 07:00 O2 Sat by Pulse Oximetry (%) 95 09/06/18 08:03 GENERAL: Intubated and sedated HEAD: Normal with no signs of trauma. EYES:PERRLA, EOMI, sclera anicteric, conjunctiva clear. NECK: Supple LUNGS: Breath sounds equal, clear to auscultation bilaterally. HEART: Tachycardic, S1, S2 without murmur, rub or gallop. ABDOMEN: Soft, normoactive bowel sounds. EXTREMITIES: 2+ pulses, warm, well-perfused, no edema. SKIN: Warm, dry, normal turgor, no rashes or lesions noted Laboratory Results - last 24 hr 09/05/18 09/05/18 09/05/18 07:55 07:55 14:44 WBC 18.8 H 22.4 H RBC 3.87 3.25 L Hgb 11.7 9.6 L Hct 33.6 D 28.0 L D MCV 86.9 86.1 MCH 30.2 29.4 MCHC 34.8 34.2 RDW 12.1 12.1 Plt Count 299 369 MPV 8.3 8.0 Absolute Neuts (auto) 19.4 Neutrophils % No Result Required. Neutrophils % (Manual) 87.0 H Band Neutrophils % 1.0 Lymphocytes % No Result Required. Lymphocytes % (Manual) 8.0 Monocytes % Monocytes % (Manual) 4 Eosinophils % Basophils % Nucleated RBC % Platelet Estimate Adequate PT with INR INR PTT (Actin FS) D-Dimer Sodium 140 Potassium 4.3 Chloride 107 Carbon Dioxide 22 Anion Gap 11 BUN 24 H Creatinine 1.1 Creat Clearance w eGFR 52.36 POC Glucometer Random Glucose 148 H Hemoglobin A1c % Lactic Acid Calcium 8.5 Phosphorus Magnesium Total Bilirubin 0.8 Direct Bilirubin AST 48 H ALT 79 H Alkaline Phosphatase 62 D Creatine Kinase Troponin I Total Protein 6.3 L Albumin 3.4 TSH Urine Color Urine Appearance Urine pH Ur Specific [place] Urine Protein Urine Glucose (UA) Urine Ketones Urine Blood Urine Nitrite Urine Bilirubin Urine Urobilinogen Ur Leukocyte Esterase Blood Type Antibody Screen Crossmatch Crossmatch IS Only 09/05/18 09/05/18 09/05/18 14:44 14:44 14:44 WBC RBC Hgb Hct MCV MCH MCHC RDW Plt Count MPV Absolute Neuts (auto) Neutrophils % Neutrophils % (Manual) Band Neutrophils % Lymphocytes % Lymphocytes % (Manual) Monocytes % Monocytes % (Manual) Eosinophils % Basophils % Nucleated RBC % Platelet Estimate PT with INR INR PTT (Actin FS) D-Dimer Sodium 140 Potassium 4.3 Chloride 110 H Carbon Dioxide 21 Anion Gap 9 BUN 27 H Creatinine 1.2 Creat Clearance w eGFR 47.36 POC Glucometer Random Glucose 197 H Hemoglobin A1c % Lactic Acid Calcium 8.2 L Phosphorus Magnesium Total Bilirubin 0.9 Direct Bilirubin AST 40 H ALT 66 H Alkaline Phosphatase 55 Creatine Kinase Cancelled 95 Troponin I Cancelled < 0.03 Total Protein 5.9 L Albumin 3.3 L TSH Urine Color Urine Appearance Urine pH Ur Specific [place] Urine Protein Urine Glucose (UA) Urine Ketones Urine Blood Urine Nitrite Urine Bilirubin Urine Urobilinogen Ur Leukocyte Esterase Blood Type Antibody Screen Crossmatch Crossmatch IS Only 09/05/18 09/05/18 09/05/18 16:08 16:15 16:20 WBC RBC Hgb Hct MCV MCH MCHC RDW Plt Count MPV Absolute Neuts (auto) Neutrophils % Neutrophils % (Manual) Band Neutrophils % Lymphocytes % Lymphocytes % (Manual) Monocytes % Monocytes % (Manual) Eosinophils % Basophils % Nucleated RBC % Platelet Estimate PT with INR INR PTT (Actin FS) D-Dimer Sodium Potassium Chloride Carbon Dioxide Anion Gap BUN Creatinine Creat Clearance w eGFR POC Glucometer 199 Random Glucose Hemoglobin A1c % Lactic Acid Calcium Phosphorus Magnesium Total Bilirubin Direct Bilirubin AST ALT Alkaline Phosphatase Creatine Kinase Troponin I Total Protein Albumin TSH Urine Color Urine Appearance Urine pH Ur Specific [place] Urine Protein Urine Glucose (UA) Urine Ketones Urine Blood Urine Nitrite Urine Bilirubin Urine Urobilinogen Ur Leukocyte Esterase Blood Type O POSITIVE O POSITIVE Antibody Screen Negative Crossmatch See Detail Crossmatch IS Only See Detail 09/05/18 09/05/18 09/05/18 18:00 22:20 22:20 WBC 22.8 H 22.9 H RBC 2.53 L 3.38 L Hgb 7.6 L 10.0 L Hct 22.2 L D 30.1 L MCV 87.7 89.1 MCH 30.1 29.5 MCHC 34.4 33.1 RDW 12.2 13.3 Plt Count 296 280 MPV 6.9 L 7.7 Absolute Neuts (auto) 18.7 H Neutrophils % No Result Required. 81.8 Neutrophils % (Manual) 80.0 Band Neutrophils % Lymphocytes % No Result Required. 9.4 Lymphocytes % (Manual) 10.0 Monocytes % 8.7 Monocytes % (Manual) 10 Eosinophils % 0.0 Basophils % 0.1 Nucleated RBC % 0 Platelet Estimate PT with INR INR PTT (Actin FS) D-Dimer Sodium 142 Potassium 4.6 Chloride 113 H Carbon Dioxide 20 L Anion Gap 9 BUN 28 H Creatinine 1.1 Creat Clearance w eGFR 52.36 POC Glucometer Random Glucose 198 H Hemoglobin A1c % Lactic Acid Calcium 7.6 L Phosphorus Magnesium Total Bilirubin 1.1 H Direct Bilirubin AST 23 ALT 59 Alkaline Phosphatase 53 Creatine Kinase Troponin I Total Protein 5.3 L Albumin 2.7 L TSH 1.05 Urine Color Urine Appearance Urine pH Ur Specific [place] Urine Protein Urine Glucose (UA) Urine Ketones Urine Blood Urine Nitrite Urine Bilirubin Urine Urobilinogen Ur Leukocyte Esterase Blood Type Antibody Screen Crossmatch Crossmatch IS Only 09/05/18 09/05/18 09/05/18 23:15 23:15 23:15 WBC 23.0 H RBC 3.26 L Hgb 9.5 L Hct 28.9 L MCV 88.9 MCH 29.2 MCHC 32.9 RDW 13.3 Plt Count 256 MPV 8.4 Absolute Neuts (auto) Neutrophils % Neutrophils % (Manual) Band Neutrophils % Lymphocytes % Lymphocytes % (Manual) Monocytes % Monocytes % (Manual) Eosinophils % Basophils % Nucleated RBC % Platelet Estimate PT with INR INR PTT (Actin FS) D-Dimer Sodium 143 Potassium 4.6 Chloride 114 H Carbon Dioxide 20 L Anion Gap 9 BUN 28 H Creatinine 1.1 Creat Clearance w eGFR 52.36 POC Glucometer Random Glucose 191 H Hemoglobin A1c % Lactic Acid 3.9 H* Calcium 7.6 L Phosphorus Magnesium Total Bilirubin 0.9 Direct Bilirubin AST 21 ALT 55 Alkaline Phosphatase 50 Creatine Kinase Troponin I Total Protein 5.1 L Albumin 2.6 L TSH Urine Color Urine Appearance Urine pH Ur Specific [place] Urine Protein Urine Glucose (UA) Urine Ketones Urine Blood Urine Nitrite Urine Bilirubin Urine Urobilinogen Ur Leukocyte Esterase Blood Type Antibody Screen Crossmatch Crossmatch IS Only 09/05/18 09/05/18 09/05/18 23:15 23:15 23:15 WBC RBC Hgb Hct MCV MCH MCHC RDW Plt Count MPV Absolute Neuts (auto) Neutrophils % Neutrophils % (Manual) Band Neutrophils % Lymphocytes % Lymphocytes % (Manual) Monocytes % Monocytes % (Manual) Eosinophils % Basophils % Nucleated RBC % Platelet Estimate PT with INR 14.00 H INR 1.18 H PTT (Actin FS) 25.1 L D-Dimer 1194 H Sodium Potassium Chloride Carbon Dioxide Anion Gap BUN Creatinine Creat Clearance w eGFR POC Glucometer Random Glucose Hemoglobin A1c % Lactic Acid Calcium Phosphorus Magnesium Total Bilirubin Direct Bilirubin AST ALT Alkaline Phosphatase Creatine Kinase Troponin I Total Protein Albumin TSH Cancelled Urine Color Urine Appearance Urine pH Ur Specific [place] Urine Protein Urine Glucose (UA) Urine Ketones Urine Blood Urine Nitrite Urine Bilirubin Urine Urobilinogen Ur Leukocyte Esterase Blood Type Antibody Screen Crossmatch Crossmatch IS Only 09/06/18 09/06/18 09/06/18 00:30 07:10 07:10 WBC RBC Hgb Hct MCV MCH MCHC RDW Plt Count MPV Absolute Neuts (auto) Neutrophils % Neutrophils % (Manual) Band Neutrophils % Lymphocytes % Lymphocytes % (Manual) Monocytes % Monocytes % (Manual) Eosinophils % Basophils % Nucleated RBC % Platelet Estimate PT with INR INR PTT (Actin FS) D-Dimer Sodium 141 Potassium 4.6 Chloride 113 H Carbon Dioxide 22 Anion Gap 6 L BUN 22 H Creatinine 1.0 Creat Clearance w eGFR 58.45 POC Glucometer Random Glucose 167 H Hemoglobin A1c % 5.6 Lactic Acid Calcium 7.4 L Phosphorus 2.3 L Magnesium 2.1 Total Bilirubin 1.1 H Direct Bilirubin 0.6 H AST 51 H ALT 79 H Alkaline Phosphatase 50 Creatine Kinase Troponin I Total Protein 5.1 L Albumin 2.5 L TSH 0.79 Urine Color Yellow Urine Appearance Clear Urine pH 5.0 Ur Specific [place] 1.025 Urine Protein Negative Urine Glucose (UA) Negative Urine Ketones Negative Urine Blood Negative Urine Nitrite Negative Urine Bilirubin Negative Urine Urobilinogen 0.2 Ur Leukocyte Esterase Negative Blood Type Antibody Screen Crossmatch Crossmatch IS Only 09/06/18 09/06/18 07:10 07:10 WBC 19.4 H RBC 4.22 Hgb 12.9 Hct 37.4 D MCV 88.5 MCH 30.5 MCHC 34.4 RDW 13.6 Plt Count 152 D MPV 8.0 Absolute Neuts (auto) 15.7 H Neutrophils % 81.0 Neutrophils % (Manual) Band Neutrophils % Lymphocytes % 11.6 D Lymphocytes % (Manual) Monocytes % 7.1 Monocytes % (Manual) Eosinophils % 0.0 Basophils % 0.3 Nucleated RBC % 0 Platelet Estimate PT with INR INR PTT (Actin FS) D-Dimer Sodium Potassium Chloride Carbon Dioxide Anion Gap BUN Creatinine Creat Clearance w eGFR POC Glucometer Random Glucose Hemoglobin A1c % Lactic Acid 2.7 H* Calcium Phosphorus Magnesium Total Bilirubin Direct Bilirubin AST ALT Alkaline Phosphatase Creatine Kinase Troponin I Total Protein Albumin TSH Urine Color Urine Appearance Urine pH Ur Specific [place] Urine Protein Urine Glucose (UA) Urine Ketones Urine Blood Urine Nitrite Urine Bilirubin Urine Urobilinogen Ur Leukocyte Esterase Blood Type Antibody Screen Crossmatch Crossmatch IS Only Active Medications Generic Name Dose Route Start Last Admin Trade Name Freq PRN Reason Stop Dose Admin Acetaminophen 1,000 mg 09/05/18 18:20 Ofirmev Injection - IVPB Q6H PRN PAIN LEVEL 1-5 Fentanyl 50 mcg 09/06/18 05:58 Sublimaze Injection - IVPUSH [id number] PRN PAIN-PACU ORDER X 4 DOSES ONLY Famotidine/Sodium Chloride 20 mg in 50 mls @ 100 mls/hr 09/04/18 22:00 21:47 Pepcid 20 Mg Premixed Ivpb - IVPB 100 mls/hr BID DMITRY Administration Piperacillin Sod/Tazobactam 50 mls @ 100 mls/hr 09/05/18 23:30 Sod 2.25 gm/ Dextrose IVPB Q8H-IV DMITRY Protocol Piperacillin Sod/Tazobactam 50 mls @ 100 mls/hr 09/05/18 23:45 09/06/18 01:58 Sod 2.25 gm/ Dextrose IVPB 09/06/18 16:14 100 mls/hr Q8H DMITRY Administration Protocol Famotidine/Sodium Chloride 50 mls @ 100 mls/hr 09/06/18 10:00 Pepcid 20 Mg Premixed Ivpb - IVPB BID DMITRY Sodium Chloride 1,000 mls @ 150 mls/hr 09/06/18 05:45 09/06/18 06:00 Normal Saline - IV 150 mls/hr ASDIR DMITRY Administration Propofol 1,000,000 mcg in 100 mls @ 6.886 mls/hr 09/06/18 06:00 09/06/18 06: 30 Diprivan - IVPB 09/07/18 05:59 25 mcg/kg/min TITR DMITRY 17.214 mls/hr Titration Protocol 10 MCG/KG/MIN Levothyroxine Sodium 100 mcg 09/06/18 10:00 Synthroid Injection - IVPUSH DAILY DMITRY Metoclopramide HCl 10 mg 09/04/18 17:00 09/06/18 07:18 Reglan Injection - IVPUSH Not Given Q6H DMITRY Morphine Sulfate 2 mg 09/05/18 22:50 09/05/18 23:03 Morphine Sulfate IVPUSH 2 mg Q3H PRN Administration PAIN LEVEL 1-5 Ondansetron HCl 4 mg 09/04/18 16:55 09/04/18 17:25 Zofran Injection IVPUSH 4 mg Q4H PRN Administration NAUSEA AND/OR VOMITING ASSESSMENT/PLAN: Patient is a 53 year old female with past medical history of hypothyroidism, was brought in from [facility] after a syncopal episode. Patient was noted to be anemic, and received pRBCs. CTAP showed hemoperitonuem with hematoma. #Neuro -Sedated on propofol #Cardio -Tachycardic, likely from pain/anxiety -BP wnl -will continue to monitor on tele. #Pulmo -intubated and sedated. -[facility] vent: 14/600/50%/5 #GI -POD 2: gastric sleeve surgery -CTAP: moderate amounts of hemoperitoneum with a hematoma adjacent to the stomach, likely source of bleeding but there is no acute extravasation -POD 0: diagnostic laparoscopy, control of intra-abdominal hemorrhage. -Surgery (Dr. Longoria) on board. -pain control with Morphine 2mg q3 -Incentive spirometry -Monitor H/H #Hematology -s/p 7 units pRBCs -Monitor H/H -transfuse PRN #Renal -BUN/Cr 28/1 -electrolytes wnl #ID -Leukocytosis, improving. Patient remains afebrile. Likely reactive -Lactic acidosis, improving -will continue IV fluids -Chest CT revealed possible PNA vs compressive atelectasis -Blood cultures and urine cultures pending -Vanc/Zosyn given overnight -ID (Dr. Rueda) consulted. -will continue empiric Zosyn pending C/S -Trend lactic acid #Endo -Hx of Hypothyroidism. Thyroglossal duct cyst removal -On home Synthroid 137mcg PO daily -will give Synthroid 100mcg IV while intubated and NPO #FEN -IV NS @100cc/hr -Electrolytes wnl, routine bmp monitoring -NPO for now #Prophylaxis -SCDs #Disposition -full code Visit type - Emergency Visit Emergency Visit: No - New Patient This patient is new to me today: Yes Date on this admission: 09/06/18 - Critical Care Critical Care patient: Yes Total Critical Care Time (in minutes): 36 Critical Care Statement: The care of this patient involved high complexity decision making to prevent further life threatening deterioration of the patient 's condition and/or to evaluate & treat vital organ system(s) failure or risk of failure.
[2018-09-06] MEDS ORDERED: PT OWN MED DRAWER 7, Y5N ONE (08:50)
[2018-09-06] MEDS ORDERED: FUROSEMIDE 40 MG/4 ML INJECTABLE VIAL IVPUSH ONE (09:00)
[2018-09-06] MEDS: morphine SULFATE 4 MG/ML VIAL IVPUSH PRN (09:45)
[2018-09-06] MEDS ORDERED: SODIUM PHOSPHATE - 15 MM in DEXTROSE 5%-WATER - 250 ML IVPB ONE (10:00)
[2018-09-06 10:41] LABS: ANISOCYTOSIS 1+; MACROCYTOSIS 0; PLATELET ESTIMATE NORMAL
--- NOTE | 2018-09-06 10:49 | PN ---
Teaching Attending Note Name of Resident: Alissa Wyatt ATTENDING PHYSICIAN STATEMENT I saw and evaluated the patient. I reviewed the resident's note and discussed the case with the resident. I agree with the resident's findings and plan as documented. SUBJECTIVE: Pt seen and examined in the ICU. s/p hematoma evacuation removing 1.2L blood. Received 7 units PRBC so far. Intubated post op, placed on CPAP/PS with good TV and subseqeuntly extubated during rounds. OBJECTIVE: Vital Signs Period Temp Pulse Resp BP Sys/Camara Pulse Ox Last 24 Hr 96.6 F-99.6 F 111-152 16-44 91-162/41-95 94-98 Intake & Output 09/03/18 09/04/18 09/05/18 09/06/18 23:59 23:59 23:59 23:59 Intake Total 600 2150 5976 Output Total 300 1575 Balance 600 1850 4401 Weight 108.862 kg 114.759 kg 114.759 kg Gen: extubated Heart: tachycardic, regular Lung: decreased breath sounds at the bases Abd: soft, incisions clean Ext: no edema CBC, BMP 09/06/18 07:10 09/06/18 07:10 Active Medications Acetaminophen (Ofirmev Injection -) 1,000 mg IVPB Q6H PRN PRN Reason: PAIN LEVEL 1-5 Fentanyl (Sublimaze Injection -) 50 mcg IVPUSH [id number] PRN PRN Reason: PAIN-PACU ORDER X 4 DOSES ONLY Famotidine/Sodium Chloride (Pepcid 20 Mg Premixed Ivpb -) 20 mg in 50 mls @ 100 mls/hr IVPB BID DMITRY Last Admin: 09/05/18 21:47 Dose: 100 mls/hr Piperacillin Sod/Tazobactam (Sod 2.25 gm/ Dextrose) 50 mls @ 100 mls/hr IVPB Q8H-IV DMITRY; Protocol Famotidine/Sodium Chloride (Pepcid 20 Mg Premixed Ivpb -) 20 mg in 50 mls @ 100 mls/hr IVPB BID DMITRY Propofol (Diprivan -) 1,000,000 mcg in 100 mls @ 6.886 mls/hr IVPB TITR DMITRY; Protocol Stop: 09/07/18 05:59 Last Titration: 09/06/18 06:30 Dose: 25 mcg/kg/min, 17.214 mls/hr Sodium Phosphate 15 mm/ (Dextrose) 255 mls @ 62.5 mls/hr IVPB ONCE ONE Stop: 09/06/18 14:04 Levothyroxine Sodium (Synthroid Injection -) 100 mcg IVPUSH DAILY DMITRY Metoclopramide HCl (Reglan Injection -) 10 mg IVPUSH Q6H DMITRY Last Admin: 09/06/18 07:18 Dose: Not Given Morphine Sulfate (Morphine Sulfate) 2 mg IVPUSH Q3H PRN PRN Reason: PAIN LEVEL 1-5 Last Admin: 09/06/18 09:45 Dose: 2 mg Ondansetron HCl (Zofran Injection) 4 mg IVPUSH Q4H PRN PRN Reason: NAUSEA AND/OR VOMITING Last Admin: 09/04/18 17:25 Dose: 4 mg ASSESSMENT AND PLAN: Morbid Obesity s/p Laparoscopic Gastric Sleeve POD #2 Syncope Acute Blood Loss Anemia Intra-Abdominal Hematoma s/p Laparoscopic Hematoma Evacuation POD #0 Lactic Acidosis Volume Overload Hypothyroidism - pt extubated - monitor H/H - transfuse as needed - lasix today - replete lytes - pain control - incentive spirometry - O2 to keep Spo2 >90% - mechanical DVT prophylaxis - continue ICU monitoring critical care time spent in reviewing chart, evaluating patient and formulating plan 35 min
[2018-09-06] MEDS: FAMOTIDINE 20 MG/50 ML IVPB 20 MG/50 ML MG IVPB SCH ×3 (11:04→22:32)
[2018-09-06] MEDS: LEVOTHYROXINE SODIUM 100 MCG VIAL IVPUSH SCH (11:11)
--- NOTE | 2018-09-06 12:12 | PN ---
Progress Note (short form) - Note Progress Note: ID CONSULT DICTATED POD #2 GASTRIC SLEEVE COMPLICATED BY HEMOPERITONEUM LEUKOCYTOSIS- LIKELY LEUKEMOID RXN SECONDARY TO BLEED LACTIC ACIDOSIS PENDING C/S CONTINUE EMPIRIC ZOSYN
--- NOTE | 2018-09-06 13:33 | CONS ---
DATE OF CONSULTATION: 09/06/2018 HISTORY OF PRESENT ILLNESS: The patient is a 53-year-old female who was evaluated for leukocytosis. She was admitted to the hospital on September 04, 2018, for an elective sleeve gastrectomy. Her postoperative course was complicated by a syncopal episode believed to have been a vasovagal reaction. She was noted to be anemic. CT scans of the chest, abdomen, and pelvis were negative for pulmonary embolism, however, revealed large hemoperitoneum and a perigastric hematoma. She required aggressive fluid resuscitation with 3 L of IV fluids and 7 units of packed red cells in total. She was taken back to the operating room where evacuation of hematoma was performed. Her hospital course has been complicated by elevated white blood cell count. At the present time, she is extubated. She is awake and alert. She has no complaints. She denies any abdominal pain. She has been afebrile with a low-grade temperature today of 99.8. She denies any chest pain, shortness of breath, cough, or sputum production. No vomiting or diarrhea. No dysuria or hematuria. PAST MEDICAL HISTORY: Positive for morbid obesity, hypothyroidism. ALLERGIES: No known allergies. MEDICATIONS: Include Tylenol, fentanyl, Lasix, Synthroid, Pepcid. SOCIAL HISTORY: She resides at home. Nonsmoker. Occasional EtOH. SYSTEMS REVIEW: Neurologic: As per HPI. Cardiac: Negative for chest pain or palpitations. Respiratory: Negative for cough or sputum production. Gastrointestinal: As per HPI. Genitourinary: Negative for urinary tract infection. LABORATORY DATA: White count 19.4 with left shift, hematocrit 37.4, platelets 152. BUN 22, creatinine 1.0. Urinalysis negative. Lactic acid 2.7, total bilirubin 1.1, alkaline phosphatase 50, AST 51, ALT 79. Cultures are pending. PHYSICAL EXAMINATION: General: The patient is awake and alert, in no acute distress. Vital signs: Temperature 99.8, blood pressure 145/76, pulse 128 and regular, respirations 32 per minute. HEENT: Sclerae anicteric. Heart: Heart sounds S1, S2, tachycardic. Lungs: Diminished breath sounds bases bilaterally. Abdomen: Obese, mild diffuse tenderness, multiple surgical incisions which do not appear to be infected. Extremities: 1+ edema, negative Homans sign. IMPRESSION: 1. Postoperative day number 2 gastric sleeve complicated by hemoperitoneum. 2. Leukocytosis, likely leukemoid reaction secondary to bleed. 3. Lactic acidosis. Pending sepsis workup. Would continue empiric Zosyn. If culture is negative in the next 24-48 hours, can discontinue antibiotics. Continue ICU monitoring. Will follow. Thank you for the kind referral. JOHNNY HINKLE M.D. BALJINDER/[id number]
[2018-09-06 14:15] LABS: BASO % 0.1 % (0-2.0); HEMATOCRIT 37.4 % (32.4-45.2); HEMOGLOBIN 12.6 GM/dL (10.7-15.3); LYMPH % 11.6 % (8-40); MCH 29.5 pg (25.7-33.7); MCHC 33.7 g/dl (32.0-36.0); MEAN CELL VOLUME 87.7 fl (80-96); MEAN PLT VOLUME 8.5 fl (7.5-11.1); NEUT % 77.3 % (42.8-82.8); PLATELET COUNT 157 K/MM3 (134-434); RBC 4.26 M/mm3 (3.60-5.2); RDW 13.9 % (11.6-15.6); WHITE BLOOD COUNT 23.1 K/mm3 (4.0-10.0)
[2018-09-06 15:53] LABS: ANISOCYTOSIS 0; MACROCYTOSIS 0; PLATELET ESTIMATE NORMAL
--- NOTE | 2018-09-06 16:57 | CON.CARD ---
Consult Consult Specialty:: Cardiology Referred by:: Dr. Lopez Reason for Consultation:: tachycardia - History of Present Illness Chief Complaint: post op bleed, anemia History of Present Illness: 53 year old woman pmh hypothyroid, obesity, post op from lap sleeve gastrectomy with post op Intra-abdominal hemorrhage requiring PRBCs, s/p lap exploration with removal of blood clots and sutures placed. pt noted to have sinus tachycardia. pt seen and examined today in nad. states she is feeling better. notes her baseline preop resting HR is in 90s to low 100s. denies any chest pain, sob, or palpitations. - History Source History Provided By: Patient, Family Member Limitations to Obtaining History: No Limitations - Past Medical History Cardio/Vascular: No: CAD, CHF, HTN, Hyperlipdemia Pulmonary: No: COPD Renal/: No: Renal Inusuff ...LMP Comment: 4 YEARS AGO ...: No Endocrine: Yes: Hypothyroidism - Past Surgical History Additional Surgical History: Gastric sleeve - Alcohol/Substance Use Hx Alcohol Use: Yes (SOCIALLY) - Smoking History Smoking history: Unknown if ever smoked Home Medications - Allergies Allergies/Adverse Reactions: Allergies Allergy/AdvReac Type Severity Reaction Status Date / Time No Known Allergies Allergy Verified 09/01/18 09:50 - Home Medications Home Medications: Ambulatory Orders Levothyroxine Sodium [Synthroid] 137 mcg PO DAILY 09/01/18 Oxycodone HCl/Acetaminophen [Percocet 5-325 mg Tablet] 1 tab PO Q6H PRN #20 tablet MDD 4 09/04/18 Family Disease History - Family Disease History Family History: Denies Review of Systems - Review of Systems Constitutional: denies: No Symptoms, Chills, Diaphoresis, Fever, Lethargy, Loss of Appetite, Malaise, Night Sweats, Unintentional Wgt. Loss, Weakness, Other Eyes: denies: No Symptoms, Blind Spots, Blurred Vision, Double Vision, Eye Pain , Floaters, Photophobia, Recent Change in Vision, Other HENT: denies: No Symptoms, Difficult Swallowing, Ear Discharge, Ear Pain, Epistaxis, Gingival Bleeding, Hearing Loss, Mouth Swelling, Nasal Congestion, Ocular Prosthesis, Throat Pain, Toothache, Ringing in Ears, Other Neck: denies: No Symptoms, Decreased ROM, Lumps, Pain on Movement, Stiffness, Swollen Glands, Tenderness, Other Cardiovascular: denies: No Symptoms, Chest Pain, Edema, Palpitations, Shortness of Breath, Other Respiratory: denies: No Symptoms, Cough, Exercise Intolerance, Hemoptysis, Orthopnea, PND, Snoring, SOB, SOB on Exertion, Wheezing, Other Gastrointestinal: reports: Abdominal Pain. denies: No Symptoms, Bloating, Constipation, Diarrhea, Dysphagia, Indigestion, Melena, Nausea, Rectal Bleeding , Vomiting, Vomiting Blood, Other Genitourinary: denies: No Symptoms, Burning, Discharge, Dysuria, Flank Pain, Frequency, Hematuria, Incontinence, Lesions, Menses, Pain, Testicular Mass, Testicular Pain, Testicular Swelling, Urgency, Vaginal Bleeding, Other Breasts: denies: No Symptoms Reported, See HPI, Breast Implants, Discharge from Nipple, Lumps, Pain, Skin Changes, Other Musculoskeletal: denies: No Symptoms, Back Pain, Crepitus, Decreased ROM, Extremity Pain, Joint Pain, Joint Swelling, Muscle Pain, Muscle Cramps, Muscle Weakness, Other Integumentary: denies: No Symptoms, Blister, Bruising, Change in Color, Eczema, Erythema, Incision, Lesions, Lump, Pallor, Pruritis, Rash, Wound, Other Neurological: denies: No Symptoms, Change in LOC, Change in Speech, Confusion, Dizziness, Headache, Incoordination, Numbness, Parasthesia, Pre-Existing Deficit , Seizure, Syncope, Tremors, Unsteady Gait, Weakness, Other Endocrine: denies: No Symptoms, Excessive Sweating, Flushing, Increased Hunger, Increased Thirst, Intolerance to Cold, Intolerance to Heat, Unexplained Weight Gain, Unexplained Weight Loss, Other Hematology/Lymphatic: denies: No Symptoms, Easily Bruised, Excessive Bleeding, Swollen Glands, Other Psychiatric: denies: No Symptoms, Altered Sleep Pattern, Anxiety, Depression, Hallucinations, Panic, Paranoia, Suicidal, Other Vital Signs: Vital Signs Temperature 99.1 F 09/06/18 15:00 Pulse Rate 125 H 09/06/18 16:00 Respiratory Rate 24 H 09/06/18 16:00 Blood Pressure 134/75 09/06/18 16:00 O2 Sat by Pulse Oximetry (%) 94 L 09/06/18 10:18 Constitutional: Yes: No Distress, Calm Eyes: Yes: Conjunctiva Clear, EOM Intact, PERRL HENT: Yes: Atraumatic, Normocephalic Neck: Yes: Supple, Trachea Midline Respiratory: Yes: Regular, CTA Bilaterally. No: Rales, Rhonchi, SOB, Wheezes Gastrointestinal: Yes: Normal Bowel Sounds Cardiovascular: Yes: Tachycardia. No: Regular Rate and Rhythm, Bradycardia, Pulse Irregular, Gallop, Rub, Varicosities JVD: No Carotid Bruit: No PMI: Non-Displaced Heart Sounds: Yes: S1, S2. No: Split S2, S3, S4, Clicks, Gallop, Rub, Bruit Murmur: No: Systolic Murmur, Diastolic Murmur Musculoskeletal: Yes: WNL Extremities: Yes: WNL Edema: No Peripheral Pulses WNL: Yes Peripheral Pulses: 2+ Left Doralis Pedis, 2+ Right Dorsalis Pedis Neurological: Yes: Alert, Oriented Psychiatric: Yes: Alert, Oriented - Other Data Labs, Other Data: CBC, BMP 09/06/18 13:40 09/06/18 07:10 INR, PTT INR 1.18 (0.83-1.09) H 09/05/18 23:15 ekg-sinus tach, no sig ST abnl Imaging - Results Chest X-ray: Report Reviewed, Image Reviewed EKG: Report Reviewed, Image Reviewed Other: Report Reviewed, Image Reviewed (tele-sinus tach, no arrhythmias) Assessment/Plan 53 year old woman pmh hypothyroid, obesity, post op from lap sleeve gastrectomy with post op Intra-abdominal hemorrhage requiring PRBCs, s/p lap exploration with removal of blood clots and sutures placed. pt noted to have sinus tachycardia. states she is feeling better. notes her baseline preop resting HR is in 90s to low 100s. denies any chest pain, sob, or palpitations. Tachycardia-sinus tach -most likely secondary to anemia, intravascular depletion, discomfort from surgery, pro-inflammatory state -no signs of a primary cardiac issue -would not treat sinus tachycardia with AV lillie blockers -expected to improve with improvement in anemia, pain, as she recovers from surgery. -cont PRBCs as needed, IVF as needed -monitor tele overnight. -does not require other cardiac tests at this time.
[2018-09-06] MEDS ORDERED: PIPERACILLIN/TAZOBACTAM 3.375 GM VIAL IVPB ONE (17:46)
[2018-09-06] MEDS: PIPERACILLIN/TAZOB 3.375 GM 3.375 GM in DEXTROSE 5%-WATER - 50 ML IVPB SCH (17:49)
[2018-09-06] MEDS ORDERED: LACTATED RINGERS SOLUTION 1,000 ML/1,000 ML INFUS.BAG IV SCH (18:15)
--- NOTE | 2018-09-06 19:53 | PN ---
Progress Note (short form) - Note Progress Note: POD#1, #2 Afebrile; P-124-127 BP-152/77 Pt awake, alert appears with good color, not pale Denies SOB Denies feeling bloated, distended (like yesterday) P/E- Abd- less distended trocar sites healing well no cellulitis, no drainage WBC-23.1 H/H-12.6/37.4 (stable) BUN/CR- 22/1.0 LA-2.0 (decreased) Rec- ABx, cultures as per ID Agree with ICU plan for diuresis Continue DVT prophylaxis with SCD's Encourage OOB, Incentive spirometer Daily labs Begin clear liquids- 3 oz PO TID
[2018-09-06] MEDS ORDERED: ENOXAPARIN NA (PORCINE) 40 MG/0.4 ML DISP.SYRIN SQ SCH (22:00)
[2018-09-07] MEDS ORDERED: PIPERACILLIN/TAZOBACTAM 3.375 GM VIAL IVPB ONE ×3 (00:16→18:59)
[2018-09-07] MEDS ORDERED: DEXTROSE 5%-WATER - 50 ML IVPB ONE ×3 (00:17→18:59)
[2018-09-07] MEDS: PIPERACILLIN/TAZOB 3.375 GM 3.375 GM in DEXTROSE 5%-WATER - 50 ML IVPB SCH ×3 (01:25→19:05)
[2018-09-07] MEDS: METOCLOPRAMIDE HCL INJECTION 10 MG/2 ML VIAL IVPUSH SCH ×4 (05:43→21:59)
[2018-09-07 06:54] LABS: ALBUMIN 2.4 g/dl (3.4-5.0); BILIRUBIN,TOTAL 1.1 mg/dL (0.2-1); CALCIUM 7.7 mg/dL (8.5-10.1); CREATININE 0.8 mg/dL (0.55-1.3); MAGNESIUM 2.2 mg/dL (1.8-2.4); PHOSPHOROUS 1.9 mg/dL (2.5-4.9); POTASSIUM 3.6 mmol/L (3.5-5.1)
--- NOTE | 2018-09-07 07:50 | PN ---
Progress Note, Physician - Current Medication List Current Medications: Active Medications Acetaminophen (Ofirmev Injection -) 1,000 mg IVPB Q6H PRN PRN Reason: PAIN LEVEL 1-5 Fentanyl (Sublimaze Injection -) 50 mcg IVPUSH [id number] PRN PRN Reason: PAIN-PACU ORDER X 4 DOSES ONLY Famotidine/Sodium Chloride (Pepcid 20 Mg Premixed Ivpb -) 20 mg in 50 mls @ 100 mls/hr IVPB BID DMITRY Last Admin: 09/06/18 22:32 Dose: 100 mls/hr Piperacillin Sod/Tazobactam (Sod 3.375 gm/ Dextrose) 50 mls @ 100 mls/hr IVPB Q8H-IV DMITRY; Protocol Last Admin: 09/07/18 01:25 Dose: 100 mls/hr Potassium Phosphate 15 mm/ (Sodium Chloride) 255 mls @ 62.5 mls/hr IVPB ONCE ONE Stop: 09/07/18 13:04 Levothyroxine Sodium (Synthroid Injection -) 100 mcg IVPUSH DAILY [facility] Last Admin: 09/06/18 11:11 Dose: 100 mcg Metoclopramide HCl (Reglan Injection -) 10 mg IVPUSH Q6H DMITRY Last Admin: 09/07/18 05:43 Dose: 10 mg Morphine Sulfate (Morphine Sulfate) 2 mg IVPUSH Q3H PRN PRN Reason: PAIN LEVEL 1-5 Last Admin: 09/06/18 09:45 Dose: 2 mg Ondansetron HCl (Zofran Injection) 4 mg IVPUSH Q4H PRN PRN Reason: NAUSEA AND/OR VOMITING Last Admin: 09/04/18 17:25 Dose: 4 mg - Objective Vital Signs: Vital Signs Temperature 99 F 09/07/18 06:00 Pulse Rate 109 H 09/07/18 07:00 Respiratory Rate 26 H 09/07/18 07:00 Blood Pressure 142/78 09/07/18 07:00 O2 Sat by Pulse Oximetry (%) 97 09/07/18 06:00 Cardiovascular: Yes: Tachycardia, S1, S2 Respiratory: Yes: Diminished (at the bases), On Nasal O2 Gastrointestinal: Yes: Normal Bowel Sounds, Soft Labs: CBC, BMP 09/07/18 05:30 INR, PTT INR 1.18 (0.83-1.09) H 09/05/18 23:15 Problem List - Problems (1) S/P gastric surgery Assessment/Plan: per surgery d/w dr benson Operative Date: 09/06/18 Pre-Operative Diagnosis: Intra-abdominal Hemorrhage Operation: Diagnostic Laparoscopy. Control of Imtra-abdominal hemorrhage Findings: Large amount of blood clots on resected greater curve of stomach and short gastric vessels. Staple line oversewed in 1 area secondary to bleeding Post-Operative Diagnosis: Same as Pre-op Code(s): Z98.890 - OTHER SPECIFIED POSTPROCEDURAL STATES (2) Anemia Assessment/Plan: due to postop bleed--see above transfused prbc--6 units follow labs Code(s): D64.9 - ANEMIA, UNSPECIFIED (3) Syncope and collapse Assessment/Plan: Due to hypotension monitor Code(s): R55 - SYNCOPE AND COLLAPSE (4) Palpitation Assessment/Plan: due to anemia improving icu monitoring cta and duplex neg Code(s): R00.2 - PALPITATIONS (5) Leukocytosis Assessment/Plan: maybe reactive improving cultures done on abx id consult Code(s): D72.829 - ELEVATED WHITE BLOOD CELL COUNT, UNSPECIFIED
[2018-09-07 08:03] LABS: BASO % 0.4 % (0-2.0); EOS % 0.2 % (0-4.5); HEMATOCRIT 29.8 % (32.4-45.2); HEMOGLOBIN 10.1 GM/dL (10.7-15.3); LYMPH % 12.3 % (8-40); MCH 29.8 pg (25.7-33.7); MCHC 33.7 g/dl (32.0-36.0); MEAN CELL VOLUME 88.4 fl (80-96); MEAN PLT VOLUME 8.7 fl (7.5-11.1); NEUT % 78.1 % (42.8-82.8); PLATELET COUNT 139 K/MM3 (134-434); RBC 3.37 M/mm3 (3.60-5.2); WHITE BLOOD COUNT 18.7 K/mm3 (4.0-10.0)
--- NOTE | 2018-09-07 08:34 | PN ---
Physical Exam: SUBJECTIVE: Patient seen and examined at bedside this morning. No acute events overnight. Patient reports minimal abdominal discomfort and has 2 loose bowel movements overnight. Denies fever, chills, headache, chest pain, SOB, urinary symptoms. OBJECTIVE: Vital Signs Temperature 99.3 F 09/07/18 14:46 Pulse Rate 111 H 09/07/18 14:46 Respiratory Rate 26 H 09/07/18 14:46 Blood Pressure 132/69 09/07/18 14:46 O2 Sat by Pulse Oximetry (%) 96 09/07/18 13:00 GENERAL: The patient is awake, alert, and fully oriented, on 3L NC HEAD: Normal with no signs of trauma. EYES: PERRLa, EOMI, sclera anicteric, conjunctiva clear.. ENT:oropharynx clear without exudates, moist mucous membranes. NECK: Trachea midline, full range of motion, supple. LUNGS: Breath sounds equal, clear to auscultation bilaterally. HEART: Regular rate and rhythm, S1, S2 without murmur, rub or gallop. ABDOMEN: Soft, mild diffuse tenderness nondistended, normoactive bowel sounds. EXTREMITIES: 2+ pulses, warm, well-perfused, no edema. NEUROLOGICAL: Cranial nerves II through XII grossly intact. Normal speech, normal gait. PSYCH: Normal mood, normal affect. SKIN: Warm, dry, normal turgor, no rashes or lesions noted Laboratory Results - last 24 hr 09/06/18 09/06/18 09/06/18 07:10 13:40 13:40 WBC 23.1 H RBC 4.26 Hgb 12.6 Hct 37.4 MCV 87.7 MCH 29.5 MCHC 33.7 RDW 13.9 Plt Count 157 MPV 8.5 Absolute Neuts (auto) 17.9 H Neutrophils % 77.3 Neutrophils % (Manual) 74.2 79.8 Band Neutrophils % 4.1 1.0 Lymphocytes % 11.6 Lymphocytes % (Manual) 11.4 12.1 Monocytes % 11.0 H Monocytes % (Manual) 9 6 Eosinophils % 0.0 Eosinophils % (Manual) 0.0 0.0 Basophils % 0.1 Basophils % (Manual) 0.0 0.0 Myelocytes % (Man) 0 0 Promyelocytes % (Man) 0 0 Blast Cells % (Manual) 0 0 Nucleated RBC % 0 Metamyelocytes 0 1 D Hypochromia 0 0 Platelet Estimate Normal Normal Platelet Comment Present Polychromasia 0 0 Poikilocytosis 0 0 Anisocytosis 1+ 0 Microcytosis 1+ 0 Macrocytosis 0 0 Sodium Potassium Chloride Carbon Dioxide Anion Gap BUN Creatinine Est GFR (CKD-EPI)AfAm Est GFR (CKD-EPI)NonAf Random Glucose Lactic Acid 2.0 Calcium Phosphorus Magnesium Total Bilirubin AST ALT Alkaline Phosphatase Total Protein Albumin 09/07/18 09/07/18 05:30 05:30 WBC 18.7 H RBC 3.37 L Hgb 10.1 L Hct 29.8 L D MCV 88.4 MCH 29.8 MCHC 33.7 RDW 14.0 Plt Count MPV 8.7 Absolute Neuts (auto) 14.6 H Neutrophils % 78.1 Neutrophils % (Manual) Band Neutrophils % Lymphocytes % 12.3 Lymphocytes % (Manual) Monocytes % 9.0 Monocytes % (Manual) Eosinophils % 0.2 D Eosinophils % (Manual) Basophils % 0.4 D Basophils % (Manual) Myelocytes % (Man) Promyelocytes % (Man) Blast Cells % (Manual) Nucleated RBC % 0 Metamyelocytes Hypochromia Platelet Estimate Platelet Comment Polychromasia Poikilocytosis Anisocytosis Microcytosis Macrocytosis Sodium 144 Potassium 3.6 Chloride 110 H Carbon Dioxide 30 Anion Gap 4 L BUN 17 Creatinine 0.8 Est GFR (CKD-EPI)AfAm 98.93 Est GFR (CKD-EPI)NonAf 85.36 Random Glucose 119 H Lactic Acid Calcium 7.7 L Phosphorus 1.9 L Magnesium 2.2 Total Bilirubin 1.1 H AST 43 H ALT 70 H Alkaline Phosphatase 50 Total Protein 5.0 L Albumin 2.4 L Active Medications Generic Name Dose Route Start Last Admin Trade Name Freq PRN Reason Stop Dose Admin Acetaminophen 1,000 mg 09/05/18 18:20 Ofirmev Injection - IVPB Q6H PRN PAIN LEVEL 1-5 Fentanyl 50 mcg 09/06/18 05:58 Sublimaze Injection - IVPUSH [id number] PRN PAIN-PACU ORDER X 4 DOSES ONLY Famotidine/Sodium Chloride 20 mg in 50 mls @ 100 mls/hr 09/06/18 10:00 22:32 Pepcid 20 Mg Premixed Ivpb - IVPB 100 mls/hr BID DMITRY Administration Piperacillin Sod/Tazobactam 50 mls @ 100 mls/hr 09/06/18 18:00 09/07/18 01:25 Sod 3.375 gm/ Dextrose IVPB 100 mls/hr Q8H-IV DMITRY Administration Protocol Potassium Phosphate 15 mm/ 255 mls @ 62.5 mls/hr 09/07/18 09:00 Sodium Chloride IVPB 09/07/18 13:04 ONCE ONE Levothyroxine Sodium 100 mcg 09/06/18 10:00 09/06/18 11:11 Synthroid Injection - IVPUSH 100 mcg DAILY DMITRY Administration Metoclopramide HCl 10 mg 09/04/18 17:00 09/07/18 05:43 Reglan Injection - IVPUSH 10 mg Q6H DMITRY Administration Morphine Sulfate 2 mg 09/05/18 22:50 09/06/18 09:45 Morphine Sulfate IVPUSH 2 mg Q3H PRN Administration PAIN LEVEL 1-5 Ondansetron HCl 4 mg 09/04/18 16:55 09/04/18 17:25 Zofran Injection IVPUSH 4 mg Q4H PRN Administration NAUSEA AND/OR VOMITING ASSESSMENT/PLAN: Patient is a 53 year old female with past medical history of hypothyroidism, was brought in from [facility] after a syncopal episode. Patient was noted to be anemic, and received pRBCs. CTAP showed hemoperitonuem with hematoma. #Neuro -awake, alert #Cardio -Tachycardic, likely from pain/anxiety -BP wnl -will continue to monitor on tele. #Pulmo -Keep SpO2 >90%, on 3L NC #GI -POD 3: gastric sleeve surgery -CTAP: moderate amounts of hemoperitoneum with a hematoma adjacent to the stomach, likely source of bleeding but there is no acute extravasation -POD 1: diagnostic laparoscopy, control of intra-abdominal hemorrhage. -Surgery (Dr. Longoria) on board. -pain control with Morphine 2mg q3 -Incentive spirometry -Monitor H/H -Clear liquid diet, advance as per surgery #Hematology -s/p 7 units pRBCs -Monitor H/H -transfuse PRN #Renal -renal function stable -hypoK and hypoPhos, repleted #ID -Leukocytosis, improving. Patient remains afebrile. Likely reactive -Lactic acidosis, resolved -IV fluids discontinued -Chest CT revealed possible PNA vs compressive atelectasis -Blood cultures and urine cultures showed no growth -ID (Dr. Rueda) consulted. -will continue empiric Zosyn pending C/S #Endo -Hx of Hypothyroidism. Thyroglossal duct cyst removal -On home Synthroid 137mcg PO daily -will give Synthroid 100mcg IV while intubated and NPO #FEN -Not on any standing fluids -routine bmp monitoring -Clear liquids, advance as per surgery #Prophylaxis -SCDs #Disposition -full code Visit type - Emergency Visit Emergency Visit: Yes ED Registration Date: 09/04/18 Care time: The patient presented to the Emergency Department on the above date and was hospitalized for further evaluation of their emergent condition. - New Patient This patient is new to me today: No - Critical Care Critical Care patient: Yes Total Critical Care Time (in minutes): 36 Critical Care Statement: The care of this patient involved high complexity decision making to prevent further life threatening deterioration of the patient 's condition and/or to evaluate & treat vital organ system(s) failure or risk of failure.
[2018-09-07] MEDS ORDERED: POTASSIUM PHOSPHATE 15 MM in SODIUM CHLORIDE 250 ML IVPB ONE (09:00)
[2018-09-07] MEDS ORDERED: PT OWN MED DRAWER 7, Y5N ONE (09:34)
[2018-09-07] MEDS: FAMOTIDINE 20 MG/50 ML IVPB 20 MG/50 ML MG IVPB SCH ×2 (09:57→21:58)
[2018-09-07] MEDS: LEVOTHYROXINE SODIUM 100 MCG VIAL IVPUSH SCH (10:00)
[2018-09-07 11:17] LABS: PLATELET ESTIMATE SLT DECREASE
--- NOTE | 2018-09-07 11:17 | PN ---
Progress Note, Physician History of Present Illness: OOB IN CHAIR NO COMPLAINTS LOW GRADE TEMP WBC DOWNWARD TRENDING C/S NO GROWTH - Current Medication List Current Medications: Active Medications Acetaminophen (Ofirmev Injection -) 1,000 mg IVPB Q6H PRN PRN Reason: PAIN LEVEL 1-5 Fentanyl (Sublimaze Injection -) 50 mcg IVPUSH [id number] PRN PRN Reason: PAIN-PACU ORDER X 4 DOSES ONLY Famotidine/Sodium Chloride (Pepcid 20 Mg Premixed Ivpb -) 20 mg in 50 mls @ 100 mls/hr IVPB BID DMITRY Last Admin: 09/07/18 09:57 Dose: 100 mls/hr Piperacillin Sod/Tazobactam (Sod 3.375 gm/ Dextrose) 50 mls @ 100 mls/hr IVPB Q8H-IV DMITRY; Protocol Last Admin: 09/07/18 09:58 Dose: 100 mls/hr Potassium Phosphate 15 mm/ (Sodium Chloride) 255 mls @ 62.5 mls/hr IVPB ONCE ONE Stop: 09/07/18 13:04 Last Admin: 09/07/18 09:58 Dose: 62.5 mls/hr Ipratropium [place] (Atrovent 0.02% Nebulizer -) 1 amp NEB RQID [facility] Levothyroxine Sodium (Synthroid Injection -) 100 mcg IVPUSH DAILY [facility] Last Admin: 09/07/18 10:00 Dose: 100 mcg Metoclopramide HCl (Reglan Injection -) 10 mg IVPUSH Q6H [facility] Last Admin: 09/07/18 05:43 Dose: 10 mg Morphine Sulfate (Morphine Sulfate) 2 mg IVPUSH Q3H PRN PRN Reason: PAIN LEVEL 1-5 Last Admin: 09/06/18 09:45 Dose: 2 mg Ondansetron HCl (Zofran Injection) 4 mg IVPUSH Q4H PRN PRN Reason: NAUSEA AND/OR VOMITING Last Admin: 09/04/18 17:25 Dose: 4 mg - Objective Vital Signs: Vital Signs Temperature 99.2 F 09/07/18 10:00 Pulse Rate 106 H 09/07/18 10:46 Respiratory Rate 25 H 09/07/18 10:46 Blood Pressure 139/76 09/07/18 10:00 O2 Sat by Pulse Oximetry (%) 95 09/07/18 09:00 Constitutional: Yes: No Distress Eyes: Yes: Conjunctiva Clear Cardiovascular: Yes: Regular Rate and Rhythm, S1, S2 Respiratory: Yes: CTA Bilaterally Gastrointestinal: Yes: Normal Bowel Sounds, Soft, Abdomen, Obese, Other ( SURGICAL WOUNDS HEALING WELL). No: Tenderness Extremities: No: Calf Tenderness Edema: Yes Labs: CBC, BMP 09/07/18 05:30 09/07/18 05:30 INR, PTT INR 1.18 (0.83-1.09) H 09/05/18 23:15 Assessment/Plan POD #3 GASTRIC SLEEVE COMPLICATED BY HEMOPERITONEUM LEUKOCYTOSIS RESOLVING LACTIC ACIDOSIS RESOLVED CONTINUE EMPIRIC ZOSYN PENDING C/S
[2018-09-07] MEDS: IPRATROPIUM BR 0.02% 0.5 MG/2.5 ML VIAL.NEB. NEB SCH ×3 (11:20→20:04)
[2018-09-07 12:59] LABS: BASO % 0.1 % (0-2.0); EOS % 0.1 % (0-4.5); HEMATOCRIT 30.4 % (32.4-45.2); HEMOGLOBIN 10.3 GM/dL (10.7-15.3); LYMPH % 11.7 % (8-40); MCHC 33.8 g/dl (32.0-36.0); MEAN CELL VOLUME 88.6 fl (80-96); MEAN PLT VOLUME 8.4 fl (7.5-11.1); MONO % 8.5 % (3.8-10.2); NEUT % 79.6 % (42.8-82.8); PLATELET COUNT 144 K/MM3 (134-434); RBC 3.43 M/mm3 (3.60-5.2); RDW 13.8 % (11.6-15.6); WHITE BLOOD COUNT 16.5 K/mm3 (4.0-10.0)
--- NOTE | 2018-09-07 13:50 | PN ---
Teaching Attending Note Name of Resident: Alissa Wyatt ATTENDING PHYSICIAN STATEMENT I saw and evaluated the patient. I reviewed the resident's note and discussed the case with the resident. I agree with the resident's findings and plan as documented. SUBJECTIVE: Patient seen and examined in the ICU. Extubated. Awake and alert. Still with post-op related pain but better. 750cc on Incentive Spirometer. H&H stabilizing Intake & Output 09/04/18 09/05/18 09/06/18 09/07/18 23:59 23:59 23:59 23:59 Intake Total 600 2150 6741 1090 Output Total 300 4275 1000 Balance 600 1850 2466 90 Weight 240 lb 253 lb 253 lb 256 lb 4.8 oz Last Vital Signs Temp Pulse Resp BP Pulse Ox 99.2 F 106 H 25 H 139/76 95 09/07/18 10:00 09/07/18 10:46 09/07/18 10:46 09/07/18 10:00 09/07/18 09:00 Active Medications Acetaminophen (Ofirmev Injection -) 1,000 mg IVPB Q6H PRN PRN Reason: PAIN LEVEL 1-5 Fentanyl (Sublimaze Injection -) 50 mcg IVPUSH [id number] PRN PRN Reason: PAIN-PACU ORDER X 4 DOSES ONLY Famotidine/Sodium Chloride (Pepcid 20 Mg Premixed Ivpb -) 20 mg in 50 mls @ 100 mls/hr IVPB BID DMITRY Last Admin: 09/07/18 09:57 Dose: 100 mls/hr Piperacillin Sod/Tazobactam (Sod 3.375 gm/ Dextrose) 50 mls @ 100 mls/hr IVPB Q8H-IV DMITRY; Protocol Last Admin: 09/07/18 09:58 Dose: 100 mls/hr Ipratropium [place] (Atrovent 0.02% Nebulizer -) 1 amp NEB RQID DMITRY Levothyroxine Sodium (Synthroid Injection -) 100 mcg IVPUSH DAILY [facility] Last Admin: 09/07/18 10:00 Dose: 100 mcg Metoclopramide HCl (Reglan Injection -) 10 mg IVPUSH Q6H [facility]IT[facility] Last Admin: 09/07/18 11:53 Dose: 10 mg Morphine Sulfate (Morphine Sulfate) 2 mg IVPUSH Q3H PRN PRN Reason: PAIN LEVEL 1-5 Last Admin: 09/06/18 09:45 Dose: 2 mg Ondansetron HCl (Zofran Injection) 4 mg IVPUSH Q4H PRN PRN Reason: NAUSEA AND/OR VOMITING Last Admin: 09/04/18 17:25 Dose: 4 mg Gen: extubated, awake and alert Heart: tachycardic, regular Lung: decreased breath sounds at the bases Abd: soft, incisions clean Ext: no edema Laboratory Results - last 24 hr 09/06/18 09/06/18 09/07/18 13:40 13:40 05:30 WBC 23.1 H RBC 4.26 Hgb 12.6 Hct 37.4 MCV 87.7 MCH 29.5 MCHC 33.7 RDW 13.9 Plt Count 157 MPV 8.5 Absolute Neuts (auto) 17.9 H Neutrophils % 77.3 Neutrophils % (Manual) 79.8 Band Neutrophils % 1.0 Lymphocytes % 11.6 Lymphocytes % (Manual) 12.1 Monocytes % 11.0 H Monocytes % (Manual) 6 Eosinophils % 0.0 Eosinophils % (Manual) 0.0 Basophils % 0.1 Basophils % (Manual) 0.0 Myelocytes % (Man) 0 Promyelocytes % (Man) 0 Blast Cells % (Manual) 0 Nucleated RBC % 0 Metamyelocytes 1 D Hypochromia 0 Platelet Estimate Normal Platelet Comment Polychromasia 0 Poikilocytosis 0 Anisocytosis 0 Microcytosis 0 Macrocytosis 0 Sodium 144 Potassium 3.6 Chloride 110 H Carbon Dioxide 30 Anion Gap 4 L BUN 17 Creatinine 0.8 Est GFR (CKD-EPI)AfAm 98.93 Est GFR (CKD-EPI)NonAf 85.36 Random Glucose 119 H Lactic Acid 2.0 Calcium 7.7 L Phosphorus 1.9 L Magnesium 2.2 Total Bilirubin 1.1 H AST 43 H ALT 70 H Alkaline Phosphatase 50 Total Protein 5.0 L Albumin 2.4 L 09/07/18 09/07/18 05:30 12:05 WBC 18.7 H 16.5 H RBC 3.37 L 3.43 L Hgb 10.1 L 10.3 L Hct 29.8 L D 30.4 L MCV 88.4 88.6 MCH 29.8 30.0 MCHC 33.7 33.8 RDW 14.0 13.8 Plt Count 139 144 MPV 8.7 8.4 Absolute Neuts (auto) 14.6 H 13.1 H Neutrophils % 78.1 79.6 Neutrophils % (Manual) Band Neutrophils % Lymphocytes % 12.3 11.7 Lymphocytes % (Manual) Monocytes % 9.0 8.5 Monocytes % (Manual) Eosinophils % 0.2 D 0.1 Eosinophils % (Manual) Basophils % 0.4 D 0.1 Basophils % (Manual) Myelocytes % (Man) Promyelocytes % (Man) Blast Cells % (Manual) Nucleated RBC % 0 0 Metamyelocytes Hypochromia Platelet Estimate Slt decrease Platelet Comment Polychromasia Poikilocytosis Anisocytosis Microcytosis Macrocytosis Sodium Potassium Chloride Carbon Dioxide Anion Gap BUN Creatinine Est GFR (CKD-EPI)AfAm Est GFR (CKD-EPI)NonAf Random Glucose Lactic Acid Calcium Phosphorus Magnesium Total Bilirubin AST ALT Alkaline Phosphatase Total Protein Albumin ASSESSMENT AND PLAN: Morbid Obesity POD #3 Laparoscopic Gastric Sleeve Syncope Acute Blood Loss Anemia Intra-Abdominal Hematoma s/p Laparoscopic Hematoma Evacuation POD #1 Lactic Acidosis Volume Overload Hypothyroidism - O2 as needed - monitor H/H - Normal transfusion thresholds - replete lytes - pain control - incentive spirometry - O2 to keep Spo2 >90% - mechanical DVT prophylaxis - PO per surgery - OOB to chair Dr Low
--- NOTE | 2018-09-07 17:04 | PN ---
Progress Note, Physician History of Present Illness: seen and examined today in nad. no overnight events. no new complaints. - Current Medication List Current Medications: Active Medications Acetaminophen (Ofirmev Injection -) 1,000 mg IVPB Q6H PRN PRN Reason: PAIN LEVEL 1-5 Fentanyl (Sublimaze Injection -) 50 mcg IVPUSH [id number] PRN PRN Reason: PAIN-PACU ORDER X 4 DOSES ONLY Famotidine/Sodium Chloride (Pepcid 20 Mg Premixed Ivpb -) 20 mg in 50 mls @ 100 mls/hr IVPB BID [facility] Last Admin: 09/07/18 09:57 Dose: 100 mls/hr Piperacillin Sod/Tazobactam (Sod 3.375 gm/ Dextrose) 50 mls @ 100 mls/hr IVPB Q8H-IV [facility]ITRY; Protocol Last Admin: 09/07/18 09:58 Dose: 100 mls/hr Ipratropium [place] (Atrovent 0.02% Nebulizer -) 1 amp NEB RQID [facility] Last Admin: 09/07/18 15:15 Dose: 1 amp Levothyroxine Sodium (Synthroid Injection -) 100 mcg IVPUSH DAILY [facility] Last Admin: 09/07/18 10:00 Dose: 100 mcg Metoclopramide HCl (Reglan Injection -) 10 mg IVPUSH Q6H [facility] Last Admin: 09/07/18 11:53 Dose: 10 mg Morphine Sulfate (Morphine Sulfate) 2 mg IVPUSH Q3H PRN PRN Reason: PAIN LEVEL 1-5 Last Admin: 09/06/18 09:45 Dose: 2 mg Ondansetron HCl (Zofran Injection) 4 mg IVPUSH Q4H PRN PRN Reason: NAUSEA AND/OR VOMITING Last Admin: 09/04/18 17:25 Dose: 4 mg - Objective Vital Signs: Vital Signs Temperature 99.3 F 09/07/18 14:46 Pulse Rate 111 H 09/07/18 14:46 Respiratory Rate 26 H 09/07/18 14:46 Blood Pressure 132/69 09/07/18 14:46 O2 Sat by Pulse Oximetry (%) 96 09/07/18 13:00 Constitutional: Yes: No Distress, Calm Eyes: Yes: Conjunctiva Clear, EOM Intact HENT: Yes: Atraumatic, Normocephalic Cardiovascular: Yes: Regular Rate and Rhythm, S1, S2. No: Bradycardia, Tachycardia, Pulse Irregular, Bruit, JVD, Gallop, Murmur, Rub, S3, S4, Varicosities Respiratory: Yes: Regular. No: Rales, Rhonchi, Wheezes Gastrointestinal: Yes: Normal Bowel Sounds, Soft. No: Distention, Tenderness Extremities: Yes: WNL Edema: No Peripheral Pulses WNL: Yes Neurological: Yes: Alert, Oriented Psychiatric: Yes: Alert, Oriented Labs: CBC, BMP 09/07/18 12:05 09/07/18 05:30 INR, PTT INR 1.18 (0.83-1.09) H 09/05/18 23:15 - ....Imaging Chest X-ray: Report Reviewed, Image Reviewed EKG: Report Reviewed, Image Reviewed Other: Report Reviewed, Image Reviewed (tele-nsr, mild sinus tach) Assessment/Plan 53 year old woman pmh hypothyroid, obesity, post op from lap sleeve gastrectomy with post op Intra-abdominal hemorrhage requiring PRBCs, s/p lap exploration with removal of blood clots and sutures placed. pt noted to have sinus tachycardia. states she is feeling better. notes her baseline preop resting HR is in 90s to low 100s. denies any chest pain, sob, or palpitations. Tachycardia-sinus tach has improved significantly today -most likely secondary to anemia, intravascular depletion, discomfort from surgery, pro-inflammatory state -no signs of a primary cardiac issue -HR back to close to baseline prior to surgery -cont PRBCs as needed, IVF as needed -does not require other cardiac tests at this time. -given prn Lasix due to suspected volume overload after PRBC/IVF resuscitation -does not require standing diuretics Please call with any further questions.
--- NOTE | 2018-09-07 21:40 | PN ---
Progress Note (short form) - Note Progress Note: POD#3-sleeve gastrectomy POD#1-Laparoscopy plus removal of clots Appreciate F/U of all specialists Pt continues to improve P-now 102-105 BP-139/80 Pt ambulated today No complaints Tolerating PO clear liquids- 2 oz po TID plus H2O- 1 cup Q2H P/E-Abd- less distention than previously Ext- hand with mild/moderate swelling lower extremities- no swelling ; SCD's in place WBC-16.5 (decreasing) H/H- 10.3/30.4-(stable) P- Continue clear liquids - 2 oz po TID Encourage OOB, incentive spirometer Cont SCD's, DVT prophylaxis Antibiotics as per ID Management as per ICU team
[2018-09-08] MEDS ORDERED: PIPERACILLIN/TAZOBACTAM 3.375 GM VIAL IVPB ONE ×3 (01:06→18:09)
[2018-09-08] MEDS ORDERED: DEXTROSE 5%-WATER - 50 ML IVPB ONE ×3 (01:06→18:09)
[2018-09-08] MEDS: PIPERACILLIN/TAZOB 3.375 GM 3.375 GM in DEXTROSE 5%-WATER - 50 ML IVPB SCH ×3 (02:05→18:14)
[2018-09-08] MEDS: METOCLOPRAMIDE HCL INJECTION 10 MG/2 ML VIAL IVPUSH SCH ×3 (05:58→18:14)
[2018-09-08 06:00] LABS: BASO % 0.2 % (0-2.0); EOS % 0.6 % (0-4.5); HEMATOCRIT 27.1 % (32.4-45.2); HEMOGLOBIN 9.3 GM/dL (10.7-15.3); LYMPH % 13.1 % (8-40); MCH 30.3 pg (25.7-33.7); MCHC 34.2 g/dl (32.0-36.0); MEAN CELL VOLUME 88.5 fl (80-96); MEAN PLT VOLUME 8.3 fl (7.5-11.1); NEUT % 79.1 % (42.8-82.8); PLATELET COUNT 158 K/MM3 (134-434); RBC 3.07 M/mm3 (3.60-5.2); RDW 13.6 % (11.6-15.6); WHITE BLOOD COUNT 12.5 K/mm3 (4.0-10.0)
[2018-09-08 06:29] LABS: ALBUMIN 2.5 g/dl (3.4-5.0); BILIRUBIN,TOTAL 1.3 mg/dL (0.2-1); CALCIUM 7.8 mg/dL (8.5-10.1); CREATININE 0.7 mg/dL (0.55-1.3); MAGNESIUM 2.4 mg/dL (1.8-2.4); PHOSPHOROUS 2.6 mg/dL (2.5-4.9); POTASSIUM 3.3 mmol/L (3.5-5.1); TOT PROT 5.5 g/dl (6.4-8.2)
[2018-09-08] MEDS: IPRATROPIUM BR 0.02% 0.5 MG/2.5 ML VIAL.NEB. NEB SCH (08:06)
[2018-09-08] MEDS ORDERED: ALBUTEROL SO4 2.5/IPRATROPIUM 0.5 INH SOL 3 ML VIAL.NEB. NEB ONE (09:23)
[2018-09-08] MEDS: FAMOTIDINE 20 MG/50 ML IVPB 20 MG/50 ML MG IVPB SCH ×2 (09:50→21:13)
[2018-09-08] MEDS: KCL 10 MEQ IVPB 10 MEQ/100 ML INFUS.BAG IVPB SCH ×2 (09:50→13:20)
[2018-09-08] MEDS ORDERED: PATIENT'S OWN MEDICATION (NON-FORMULARY) (Levothyroxine Sodium [Synthroid] 137 MCG) PO SCH (10:00)
--- NOTE | 2018-09-08 11:03 | SURG ---
Surgery Web Applications Administrator Note Web Applications Administrator: Reji Aquino MD Date of Service: 09/06/18 Diagnosis: intra abdominal hemorrhage Procedure: diagnostic laparoscopy and control of intraoperative hemorhage I was present for the entirety of the operative procedure. For further detail, please refer to operative report.
--- NOTE | 2018-09-08 11:35 | PN ---
Teaching Attending Note Name of Resident: Alissa Wyatt ATTENDING PHYSICIAN STATEMENT I saw and evaluated the patient. I reviewed the resident's note and discussed the case with the resident. I agree with the resident's findings and plan as documented. SUBJECTIVE: Patient seen and examined in the ICU. Awake and alert. Still with some post-op related pain but better. 1000cc on Incentive Spirometer. CXR: Poor inspiratory effort, minimal LLL atelectasis & effusion Intake & Output 09/05/18 09/06/18 09/07/18 09/08/18 23:59 23:59 23:59 23:59 Intake Total 2150 6741 2840 1040 Output Total 300 4275 1430 330 Balance 1850 2466 1410 710 Weight 253 lb 253 lb 256 lb 4.8 oz 258 lb 14.4 oz Last Vital Signs Temp Pulse Resp BP Pulse Ox 98.7 F 100 H 25 H 135/81 95 09/08/18 10:00 09/08/18 10:00 09/08/18 10:00 09/08/18 10:00 09/08/18 09:00 Active Medications Acetaminophen (Ofirmev Injection -) 1,000 mg IVPB Q6H PRN PRN Reason: PAIN LEVEL 1-5 Albuterol/Ipratropium (Duoneb -) 1 amp NEB RQID [facility] Famotidine/Sodium Chloride (Pepcid 20 Mg Premixed Ivpb -) 20 mg in 50 mls @ 100 mls/hr IVPB BID [facility] Last Admin: 09/08/18 09:50 Dose: 100 mls/hr Piperacillin Sod/Tazobactam (Sod 3.375 gm/ Dextrose) 50 mls @ 100 mls/hr IVPB Q8H-IV DMITRY; Protocol Last Admin: 09/08/18 09:50 Dose: 100 mls/hr Levothyroxine Sodium 25 mcg/ (Levothyroxine Sodium 112 mcg) 137 mcg PO DAILY@ 0700 [facility] Metoclopramide HCl (Reglan Injection -) 10 mg IVPUSH Q6H [facility] Last Admin: 09/08/18 05:58 Dose: 10 mg Ondansetron HCl (Zofran Injection) 4 mg IVPUSH Q4H PRN PRN Reason: NAUSEA AND/OR VOMITING Last Admin: 09/04/18 17:25 Dose: 4 mg Gen: awake and alert, NAD Heart: tachycardic, S1S2 Lung: decreased breath sounds at the bases Abd: soft, incisions clean Ext: no edema Laboratory Results - last 24 hr 09/07/18 09/08/18 09/08/18 12:05 05:30 05:30 WBC 16.5 H 12.5 H RBC 3.43 L 3.07 L Hgb 10.3 L 9.3 L Hct 30.4 L 27.1 L MCV 88.6 88.5 MCH 30.0 30.3 MCHC 33.8 34.2 RDW 13.8 13.6 Plt Count 144 158 MPV 8.4 8.3 Absolute Neuts (auto) 13.1 H 9.9 H Neutrophils % 79.6 79.1 Lymphocytes % 11.7 13.1 Monocytes % 8.5 7.0 Eosinophils % 0.1 0.6 D Basophils % 0.1 0.2 Nucleated RBC % 0 0 Sodium 144 Potassium 3.3 L Chloride 109 H Carbon Dioxide 28 Anion Gap 7 L BUN 16 Creatinine 0.7 Est GFR (CKD-EPI)AfAm 116.27 Est GFR (CKD-EPI)NonAf 100.32 Random Glucose 104 Calcium 7.8 L Phosphorus 2.6 Magnesium 2.4 Total Bilirubin 1.3 H AST 39 H ALT 71 H Alkaline Phosphatase 88 Total Protein 5.5 L Albumin 2.5 L ASSESSMENT AND PLAN: Morbid Obesity POD #4 Laparoscopic Gastric Sleeve Syncope Acute Blood Loss Anemia Intra-Abdominal Hematoma s/p Laparoscopic Hematoma Evacuation POD #2 Lactic Acidosis Volume Overload Hypothyroidism - O2 as needed - monitor H/H - Normal transfusion thresholds - replete lytes - pain control - incentive spirometry - O2 to keep Spo2 >90% - mechanical DVT prophylaxis - PO per surgery - OOB to chair Dr Low
[2018-09-08] MEDS: ALBUTEROL SO4 2.5/IPRATROPIUM 0.5 INH SOL 3 ML VIAL.NEB. NEB SCH ×3 (11:51→20:04)
--- NOTE | 2018-09-08 12:05 | PN ---
Progress Note, Physician Chief Complaint: patient seen and examiend earlier in the day ambulating in hallways feeling ok - Current Medication List Current Medications: Active Medications Acetaminophen (Ofirmev Injection -) 1,000 mg IVPB Q6H PRN PRN Reason: PAIN LEVEL 1-5 Albuterol/Ipratropium (Duoneb -) 1 amp NEB RQID [facility] Last Admin: 09/08/18 11:51 Dose: 1 amp Famotidine/Sodium Chloride (Pepcid 20 Mg Premixed Ivpb -) 20 mg in 50 mls @ 100 mls/hr IVPB BID [facility] Last Admin: 09/08/18 09:50 Dose: 100 mls/hr Piperacillin Sod/Tazobactam (Sod 3.375 gm/ Dextrose) 50 mls @ 100 mls/hr IVPB Q8H-IV DMITRY; Protocol Last Admin: 09/08/18 09:50 Dose: 100 mls/hr Levothyroxine Sodium 25 mcg/ (Levothyroxine Sodium 112 mcg) 137 mcg PO DAILY@ 0700 [facility] Metoclopramide HCl (Reglan Injection -) 10 mg IVPUSH Q6H [facility] Last Admin: 09/08/18 05:58 Dose: 10 mg Ondansetron HCl (Zofran Injection) 4 mg IVPUSH Q4H PRN PRN Reason: NAUSEA AND/OR VOMITING Last Admin: 09/04/18 17:25 Dose: 4 mg - Objective Vital Signs: Vital Signs Temperature 98.7 F 09/08/18 10:00 Pulse Rate 100 H 09/08/18 10:00 Respiratory Rate 25 H 09/08/18 10:00 Blood Pressure 135/81 09/08/18 10:00 O2 Sat by Pulse Oximetry (%) 95 09/08/18 09:00 Constitutional: Yes: Calm Cardiovascular: Yes: Regular Rate and Rhythm, S1, S2 Respiratory: Yes: CTA Bilaterally Gastrointestinal: Yes: Normal Bowel Sounds, Soft, Other (incision clean) Edema: No Neurological: Yes: Alert, Oriented Labs: CBC, BMP 09/08/18 05:30 09/08/18 05:30 INR, PTT INR 1.18 (0.83-1.09) H 09/05/18 23:15 Problem List - Problems (1) S/P gastric surgery Assessment/Plan: POD 4 clear liquids 3 oz po tid ambulating hallways incentive spirometry potassium repleted Code(s): Z98.890 - OTHER SPECIFIED POSTPROCEDURAL STATES (2) Leukocytosis Assessment/Plan: Microbiology 09/06/18 00:30 Urine - Urine Hall Urine Culture - Final NO GROWTH OBTAINED 09/05/18 23:15 Blood - Peripheral Venous Blood Culture - Preliminary NO GROWTH OBTAINED AFTER 48 HOURS, INCUBATION TO CONTINUE FOR 3 DAYS. 09/05/18 23:15 Blood - Peripheral Venous Blood Culture - Preliminary NO GROWTH OBTAINED AFTER 48 HOURS, INCUBATION TO CONTINUE FOR 3 DAYS. iv abx per ID wbc trending down lactic acidosis resolved Code(s): D72.829 - ELEVATED WHITE BLOOD CELL COUNT, UNSPECIFIED (3) Hypothyroid Assessment/Plan: synthroid tsh normal Code(s): E03.9 - HYPOTHYROIDISM, UNSPECIFIED
--- NOTE | 2018-09-08 12:59 | ECHO ---
Name: KURT ALAS Exam:Adult Echocardiogram Study Date: 09/08/2018 11:24 AM Age: 53 yrs Reason For Study: cardiomegaly Height: 65 in Weight: 256 lb BSA: 2.2 m2 MMode/2D Measurements & Calculations IVSd: 1.00 cm Ao root diam: 2.5 cm LVIDd: 4.4 cm LA dimension: 3.2 cm LVIDs: 2.3 cm LVPWd: 1.1 cm EDV(Teich): 88.8 ml LVOT diam: 2.0 cm ESV(Teich): 18.2 ml Doppler Measurements & Calculations MV E max tenzin: 119.0 cm/sec Ao V2 max: 194.1 cm/sec MV A max tenzin: 119.3 cm/sec Ao max P.1 mmHg MV E/A: 1.00 MV dec time: 0.08 sec RAPHAEL(V,D): 2.0 cm2 LV V1 max P.6 mmHg MR max tenzin: 509.7 cm/sec LV V1 max: 128.1 cm/sec MR max P.5 mmHg TR max tenzin: 284.0 cm/sec PA V2 max: 164.2 cm/sec TR max P.1 mmHg PA max P.8 mmHg Med Peak E' Tenzin: 10.3 cm/sec Med E/e': 11.5 Lat Peak E' Tenzin: 14.7 cm/sec Lat E/e': 8.1 Left Ventricle Left ventricular systolic function is normal. Ejection Fraction = 55-60%. The transmitral spectral Do ppler flow pattern is normal for age. Right Ventricle The right ventricle is normal in size and function. Atria Normal left and right atrial size and function. Mitral Valve The mitral valve is normal in structure and function. There is no mitral valve stenosis. There is mil d mitral regurgitation. Tricuspid Valve The tricuspid valve is normal in structure and function. There is mild tricuspid regurgitation. Right ventricular systolic pressure is elevated at 30-40mmHg. Aortic Valve The aortic valve opens well. No hemodynamically significant valvular aortic stenosis. No aortic regur gitation is present. Pulmonic Valve The pulmonic valve is not well seen, but is grossly normal. There is no pulmonic valvular stenosis. M ild pulmonic valvular regurgitation. Great Vessels The aortic root is normal size. Pericardium/Pleura Trivial pericardial effusion not hemodynamically significant. Interpretation Summary Left ventricular systolic function is normal. Ejection Fraction = 55-60%. The right ventricle is normal in size and function. There is mild mitral regurgitation. There is mild tricuspid regurgitation. Right ventricular systolic pressure is elevated at 30-40mmHg. Mild pulmonic valvular regurgitation. Trivial pericardial effusion not hemodynamically significant MD Rivera *Rocío 09/08/2018 12:58 PM
[2018-09-08 13:16] LABS: BASO % 0.2 % (0-2.0); EOS % 0.6 % (0-4.5); HEMATOCRIT 28.2 % (32.4-45.2); HEMOGLOBIN 9.4 GM/dL (10.7-15.3); LYMPH % 13.8 % (8-40); MCH 29.7 pg (25.7-33.7); MCHC 33.1 g/dl (32.0-36.0); MEAN CELL VOLUME 89.6 fl (80-96); MEAN PLT VOLUME 8.1 fl (7.5-11.1); MONO % 7.4 % (3.8-10.2); PLATELET COUNT 167 K/MM3 (134-434); RBC 3.15 M/mm3 (3.60-5.2); RDW 13.8 % (11.6-15.6)
[2018-09-08] MEDS: LORATADINE 10 MG TABLET PO SCH (13:19)
[2018-09-08] MEDS ORDERED: POTASSIUM CHLORIDE ORAL LIQUID 20 MEQ/15 ML PO ONE ×2 (13:24→16:30)
--- NOTE | 2018-09-08 15:44 | PN ---
Progress Note (short form) - Note Progress Note: POD#4-Sleeve Gastrectomy POD#2- Evacuation of Hematoma Pt doing better Afebrile; VSS P-95-102 Pt ambulating well Walking around unit without difficulty Remains on Nasal Cannula SaO2- 95-97% P/E- Abd- Midline trocar site with mild redness; non-tender, not warm to touch all other trocar sites healing well decreased distention soft, non-tender on palpation WBC-12.0 H/H-9.4/28.2 P- Cont Abx per ID Cont OOB, ambulate Cont Incentive Spirometer Follow H/H, labs closely
[2018-09-08] MEDS ORDERED: ZOLPIDEM TARTRATE 5 MG TABLET PO PRN (15:49)
[2018-09-08] MEDS: FLUTICASONE PROP 0.05% 16 GM NASAL SPRAY NS SCH (16:08)
--- NOTE | 2018-09-08 16:39 | PN ---
Physical Exam: SUBJECTIVE: Patient seen and examined at bedside this morning. No acute events overnight. Able to ambulate without difficulty but still needs the oxygen. Denies any fever, chills, headache, dizziness, chest pain, SOB, abdominal pain. OBJECTIVE: Vital Signs Temperature 98.7 F 09/08/18 10:00 Pulse Rate 100 H 09/08/18 10:00 Respiratory Rate 25 H 09/08/18 10:00 Blood Pressure 135/81 09/08/18 10:00 O2 Sat by Pulse Oximetry (%) 95 09/08/18 09:00 GENERAL: The patient is awake, alert, and fully oriented, on 3L NC HEAD: Normal with no signs of trauma. EYES: PERRLa, EOMI, sclera anicteric, conjunctiva clear.. ENT:oropharynx clear without exudates, moist mucous membranes. NECK: Trachea midline, full range of motion, supple. LUNGS: Breath sounds equal, clear to auscultation bilaterally. HEART: Regular rate and rhythm, S1, S2 without murmur, rub or gallop. ABDOMEN: Soft, nontender, nondistended, normoactive bowel sounds. EXTREMITIES: 2+ pulses, warm, well-perfused, no edema. NEUROLOGICAL: Cranial nerves II through XII grossly intact. Normal speech, normal gait. PSYCH: Normal mood, normal affect. SKIN: Warm, dry, normal turgor, no rashes or lesions noted Laboratory Results - last 24 hr 09/08/18 09/08/18 09/08/18 05:30 05:30 12:40 WBC 12.5 H 12.0 H RBC 3.07 L 3.15 L Hgb 9.3 L 9.4 L Hct 27.1 L 28.2 L MCV 88.5 89.6 MCH 30.3 29.7 MCHC 34.2 33.1 RDW 13.6 13.8 Plt Count 158 167 MPV 8.3 8.1 Absolute Neuts (auto) 9.9 H 9.3 H Neutrophils % 79.1 78.0 Lymphocytes % 13.1 13.8 Monocytes % 7.0 7.4 Eosinophils % 0.6 D 0.6 Basophils % 0.2 0.2 Nucleated RBC % 0 0 Sodium 144 Potassium 3.3 L Chloride 109 H Carbon Dioxide 28 Anion Gap 7 L BUN 16 Creatinine 0.7 Est GFR (CKD-EPI)AfAm 116.27 Est GFR (CKD-EPI)NonAf 100.32 Random Glucose 104 Calcium 7.8 L Phosphorus 2.6 Magnesium 2.4 Total Bilirubin 1.3 H AST 39 H ALT 71 H Alkaline Phosphatase 88 Total Protein 5.5 L Albumin 2.5 L Active Medications Generic Name Dose Route Start Last Admin Trade Name Freq PRN Reason Stop Dose Admin Acetaminophen 1,000 mg 09/05/18 18:20 Ofirmev Injection - IVPB Q6H PRN PAIN LEVEL 1-5 Albuterol/Ipratropium 1 amp 09/08/18 12:00 09/08/18 16:12 Duoneb - NEB 1 amp RQID [facility] Administration Fluticasone Propionate 2 spray 09/08/18 13:15 09/08/18 16:08 Flonase - NS 2 sprays DAILY [facility] Administration Famotidine/Sodium Chloride 20 mg in 50 mls @ 100 mls/hr 09/06/18 10:00 09:50 Pepcid 20 Mg Premixed Ivpb - IVPB 100 mls/hr BID [facility] Administration Piperacillin Sod/Tazobactam 50 mls @ 100 mls/hr 09/06/18 18:00 09/08/18 09:50 Sod 3.375 gm/ Dextrose IVPB 100 mls/hr Q8H-IV [facility] Administration Protocol Levothyroxine Sodium 25 mcg/ 137 mcg 09/09/18 07:00 Levothyroxine Sodium 112 mcg PO DAILY@0700 [facility] Loratadine 10 mg 09/08/18 13:15 09/08/18 13:19 Claritin - PO 10 mg DAILY [facility] Administration Metoclopramide HCl 10 mg 09/04/18 17:00 09/08/18 13:19 Reglan Injection - IVPUSH 10 mg Q6H [facility] Administration Montelukast Sodium 10 mg 09/08/18 22:00 Singulair - PO HS [facility] Ondansetron HCl 4 mg 09/04/18 16:55 09/04/18 17:25 Zofran Injection IVPUSH 4 mg Q4H PRN Administration NAUSEA AND/OR VOMITING Zolpidem Tartrate 5 mg 09/08/18 15:49 Ambien - PO HS PRN INSOMNIA ASSESSMENT/PLAN: Patient is a 53 year old female with past medical history of hypothyroidism, was brought in from [facility] after a syncopal episode. Patient was noted to be anemic, and received pRBCs. CTAP showed hemoperitonuem with hematoma. #Neuro -awake, alert #Cardio -Tachycardic, likely from pain/anxiety -BP wnl -will continue to monitor on tele. #Pulmo -Keep SpO2 >90%, on 3L NC #GI -POD 4: gastric sleeve surgery -CTAP: moderate amounts of hemoperitoneum with a hematoma adjacent to the stomach, likely source of bleeding but there is no acute extravasation -POD 2: diagnostic laparoscopy, control of intra-abdominal hemorrhage. -Surgery (Dr. Longoria) on board. -pain control with Morphine 2mg q3 -Incentive spirometry -Monitor H/H -Clear liquid diet #Hematology -s/p 7 units pRBCs -Monitor H/H -transfuse PRN #Renal -renal function stable -hypoK, repleted #ID -Leukocytosis, improving. Patient remains afebrile. Likely reactive -Lactic acidosis, resolved -IV fluids discontinued -Chest CT revealed possible PNA vs compressive atelectasis -Blood cultures and urine cultures showed no growth -ID (Dr. Rueda) consulted. -will continue empiric Zosyn pending C/S #Endo -Hx of Hypothyroidism. Thyroglossal duct cyst removal -On home Synthroid 137mcg PO daily #FEN -Not on any standing fluids -routine bmp monitoring -Clear liquid diet #Prophylaxis -SCDs #Disposition -full code Visit type - Emergency Visit Emergency Visit: Yes ED Registration Date: 09/04/18 Care time: The patient presented to the Emergency Department on the above date and was hospitalized for further evaluation of their emergent condition. - New Patient This patient is new to me today: No - Critical Care Critical Care patient: Yes Total Critical Care Time (in minutes): 35 Critical Care Statement: The care of this patient involved high complexity decision making to prevent further life threatening deterioration of the patient 's condition and/or to evaluate & treat vital organ system(s) failure or risk of failure.
[2018-09-08 16:44] LABS: BASO % 0.2 % (0-2.0); EOS % 0.6 % (0-4.5); HEMATOCRIT 28.2 % (32.4-45.2); HEMOGLOBIN 9.3 GM/dL (10.7-15.3); LYMPH % 13.9 % (8-40); MCH 29.5 pg (25.7-33.7); MCHC 33.1 g/dl (32.0-36.0); MEAN CELL VOLUME 89.2 fl (80-96); MEAN PLT VOLUME 8.3 fl (7.5-11.1); MONO % 6.9 % (3.8-10.2); NEUT % 78.4 % (42.8-82.8); PLATELET COUNT 178 K/MM3 (134-434); RBC 3.16 M/mm3 (3.60-5.2); WHITE BLOOD COUNT 11.5 K/mm3 (4.0-10.0)
--- NOTE | 2018-09-08 17:02 | CONSULT ---
Consult Consult Specialty:: endocrine Referred by:: dr.annabi patricio Reason for Consultation:: hypothyroidism - History of Present Illness Chief Complaint: bariatric surgery History of Present Illness: 53 y female,sp sleeve gastrectomy,sp hematoma evacuation,post op recovery has had difficulty breathing weakness,nausea,denies vomiting,cough ,or chest pain. - Past Medical History Cardio/Vascular: No: CAD, CHF, HTN, Hyperlipdemia Pulmonary: No: COPD Renal/: No: Renal Inusuff ...LMP Comment: 4 YEARS AGO ...: No Endocrine: Yes: Hypothyroidism - Past Surgical History Additional Surgical History: Gastric sleeve - Alcohol/Substance Use Hx Alcohol Use: Yes (SOCIALLY) - Smoking History Smoking history: Unknown if ever smoked Home Medications - Allergies Allergies/Adverse Reactions: Allergies Allergy/AdvReac Type Severity Reaction Status Date / Time No Known Allergies Allergy Verified 09/01/18 09:50 - Home Medications Home Medications: Ambulatory Orders Levothyroxine Sodium [Synthroid] 137 mcg PO DAILY 09/01/18 Oxycodone HCl/Acetaminophen [Percocet 5-325 mg Tablet] 1 tab PO Q6H PRN #20 tablet MDD 4 09/04/18 Famotidine [Pepcid] 20 mg PO BID #60 tablet 09/08/18 Review of Systems - Review of Systems Constitutional: reports: Lethargy, Weakness Eyes: reports: No Symptoms HENT: reports: No Symptoms Neck: reports: No Symptoms Cardiovascular: reports: Shortness of Breath Respiratory: reports: Exercise Intolerance Gastrointestinal: reports: Bloating Genitourinary: reports: No Symptoms Musculoskeletal: reports: No Symptoms Neurological: reports: No Symptoms, Weakness Endocrine: reports: Unexplained Weight Gain Physical Exam Vital Signs: Vital Signs Temperature 98.7 F 09/08/18 10:00 Pulse Rate 100 H 09/08/18 10:00 Respiratory Rate 25 H 09/08/18 10:00 Blood Pressure 135/81 09/08/18 10:00 O2 Sat by Pulse Oximetry (%) 95 09/08/18 09:00 Constitutional: Yes: Calm Eyes: Yes: EOM Intact HENT: Yes: Normocephalic Neck: Yes: Trachea Midline Cardiovascular: Yes: Regular Rate and Rhythm Gastrointestinal: Yes: Normal Bowel Sounds ...Rectal Exam: Yes: Deferred Renal/: Yes: WNL Musculoskeletal: Yes: WNL Extremities: Yes: WNL Edema: No Neurological: Yes: Alert, Oriented Labs: CBC, BMP 09/08/18 15:00 Problem List - Problems (1) Hypothyroid Code(s): E03.9 - HYPOTHYROIDISM, UNSPECIFIED (2) Palpitation Code(s): R00.2 - PALPITATIONS (3) S/P gastric surgery Code(s): Z98.890 - OTHER SPECIFIED POSTPROCEDURAL STATES (4) Syncope and collapse Code(s): R55 - SYNCOPE AND COLLAPSE Assessment/Plan Current Active Problems Anemia (Acute) Hypothyroid (Acute) Leukocytosis (Acute) Palpitation (Acute) S/P gastric surgery (Acute) Syncope and collapse (Acute) Abnormal Lab Results 09/08/18 09/08/18 09/08/18 05:30 05:30 12:40 WBC 12.5 H 12.0 H RBC 3.07 L 3.15 L Hgb 9.3 L 9.4 L Hct 27.1 L 28.2 L Absolute Neuts (auto) 9.9 H 9.3 H Potassium 3.3 L Chloride 109 H Anion Gap 7 L Calcium 7.8 L Total Bilirubin 1.3 H AST 39 H ALT 71 H Total Protein 5.5 L Albumin 2.5 L 09/08/18 15:00 WBC 11.5 H RBC 3.16 L Hgb 9.3 L Hct 28.2 L Absolute Neuts (auto) 9.0 H Potassium Chloride Anion Gap Calcium Total Bilirubin AST ALT Total Protein Albumin Laboratory Results - last 24 hr 09/08/18 09/08/18 09/08/18 05:30 05:30 12:40 WBC 12.5 H 12.0 H RBC 3.07 L 3.15 L Hgb 9.3 L 9.4 L Hct 27.1 L 28.2 L MCV 88.5 89.6 MCH 30.3 29.7 MCHC 34.2 33.1 RDW 13.6 13.8 Plt Count 158 167 MPV 8.3 8.1 Absolute Neuts (auto) 9.9 H 9.3 H Neutrophils % 79.1 78.0 Lymphocytes % 13.1 13.8 Monocytes % 7.0 7.4 Eosinophils % 0.6 D 0.6 Basophils % 0.2 0.2 Nucleated RBC % 0 0 Sodium 144 Potassium 3.3 L Chloride 109 H Carbon Dioxide 28 Anion Gap 7 L BUN 16 Creatinine 0.7 Est GFR (CKD-EPI)AfAm 116.27 Est GFR (CKD-EPI)NonAf 100.32 Random Glucose 104 Calcium 7.8 L Phosphorus 2.6 Magnesium 2.4 Total Bilirubin 1.3 H AST 39 H ALT 71 H Alkaline Phosphatase 88 Total Protein 5.5 L Albumin 2.5 L 09/08/18 15:00 WBC 11.5 H RBC 3.16 L Hgb 9.3 L Hct 28.2 L MCV 89.2 MCH 29.5 MCHC 33.1 RDW 14.0 Plt Count 178 MPV 8.3 Absolute Neuts (auto) 9.0 H Neutrophils % 78.4 Lymphocytes % 13.9 Monocytes % 6.9 Eosinophils % 0.6 Basophils % 0.2 Nucleated RBC % 0 Sodium Potassium Chloride Carbon Dioxide Anion Gap BUN Creatinine Est GFR (CKD-EPI)AfAm Est GFR (CKD-EPI)NonAf Random Glucose Calcium Phosphorus Magnesium Total Bilirubin AST ALT Alkaline Phosphatase Total Protein Albumin Laboratory Tests 09/06/18 07:10 TSH 0.79 plan: continue synthroid 137mcg daily give alone iv fluids\ repeat tsh free t4 outpatient
[2018-09-08 17:11] LABS: CALCIUM 7.8 mg/dL (8.5-10.1); CREATININE 0.7 mg/dL (0.55-1.3); POTASSIUM 3.3 mmol/L (3.5-5.1)
[2018-09-08] MEDS ORDERED: MONTELUKAST NA 5 MG TAB.CHEW PO SCH (22:00)
[2018-09-09] MEDS: METOCLOPRAMIDE HCL INJECTION 10 MG/2 ML VIAL IVPUSH SCH ×2 (02:29→05:29)
[2018-09-09] MEDS ORDERED: PIPERACILLIN/TAZOBACTAM 3.375 GM VIAL IVPB ONE ×2 (02:49→08:46)
[2018-09-09] MEDS ORDERED: DEXTROSE 5%-WATER - 50 ML IVPB ONE ×2 (02:49→08:46)
[2018-09-09] MEDS: PIPERACILLIN/TAZOB 3.375 GM 3.375 GM in DEXTROSE 5%-WATER - 50 ML IVPB SCH ×2 (02:52→09:14)
[2018-09-09 06:40] LABS: HEMATOCRIT 27.4 % (32.4-45.2); HEMOGLOBIN 9.5 GM/dL (10.7-15.3); MCH 30.7 pg (25.7-33.7); MCHC 34.5 g/dl (32.0-36.0); MEAN CELL VOLUME 88.9 fl (80-96); RBC 3.09 M/mm3 (3.60-5.2); WHITE BLOOD COUNT 10.3 K/mm3 (4.0-10.0)
[2018-09-09 06:41] LABS: BASO % 0.4 % (0-2.0); EOS % 1.5 % (0-4.5); LYMPH % 16.4 % (8-40); MONO % 8.9 % (3.8-10.2); NEUT % 72.8 % (42.8-82.8); PLATELET COUNT 206 K/MM3 (134-434); RDW 13.9 % (11.6-15.6)
[2018-09-09 06:55] LABS: ALBUMIN 2.3 g/dl (3.4-5.0); CALCIUM 7.9 mg/dL (8.5-10.1); CREATININE 0.6 mg/dL (0.55-1.3); MAGNESIUM 2.7 mg/dL (1.8-2.4); PHOSPHOROUS 3.8 mg/dL (2.5-4.9); POTASSIUM 3.5 mmol/L (3.5-5.1); TOT PROT 5.3 g/dl (6.4-8.2)
[2018-09-09] MEDS ORDERED: LEVOTHYROXINE 25 MCG, LEVOTHYROXINE 112 MCG PO SCH (07:00)
[2018-09-09] MEDS ORDERED: METOCLOPRAMIDE HCL INJECTION 10 MG/2 ML VIAL IVPUSH PRN (08:28)
[2018-09-09] MEDS: ALBUTEROL SO4 2.5/IPRATROPIUM 0.5 INH SOL 3 ML VIAL.NEB. NEB SCH ×3 (08:30→16:05)
--- NOTE | 2018-09-09 08:58 | PN ---
Progress Note, Physician Chief Complaint: Laparoscopic Vertical Sleeve Gastrectomy. Wedge Bopsy of Left lobe of Liver History of Present Illness: Operative Date: 09/04/18 Pre-Operative Diagnosis: Morbid Obesity. Elevated LFT Operation: Laparoscopic Vertical Sleeve Gastrectomy. Wedge Bopsy of Left lobe of Liver. Diagnostic Laparoscopy Findings: Greater curve sleeve gastrectomy with #[address] Wedge biopsy of left lobe of liver Post-Operative Diagnosis: Same as Pre-op (Hepatomegaly) Surgeon: Joselito Longoria Turn Down Attendant: Clemente Kaur Wants to go home Still on IV abc Cultures so far negative ID on board - Current Medication List Current Medications: Active Medications Acetaminophen (Ofirmev Injection -) 1,000 mg IVPB Q6H PRN PRN Reason: PAIN LEVEL 1-5 Albuterol/Ipratropium (Duoneb -) 1 amp NEB RQID [facility] Last Admin: 09/09/18 08:30 Dose: 1 amp Fluticasone Propionate (Flonase -) 2 spray NS DAILY [facility] Last Admin: 09/08/18 16:08 Dose: 2 sprays Famotidine/Sodium Chloride (Pepcid 20 Mg Premixed Ivpb -) 20 mg in 50 mls @ 100 mls/hr IVPB BID [facility] Last Admin: 09/08/18 21:13 Dose: 100 mls/hr Piperacillin Sod/Tazobactam (Sod 3.375 gm/ Dextrose) 50 mls @ 100 mls/hr IVPB Q8H-IV [facility]; Protocol Last Admin: 09/09/18 02:52 Dose: 100 mls/hr Levothyroxine Sodium 25 mcg/ (Levothyroxine Sodium 112 mcg) 137 mcg PO DAILY@ 0700 [facility] Last Admin: 09/09/18 06:36 Dose: 137 mcg Loratadine (Claritin -) 10 mg PO DAILY [facility] Last Admin: 09/08/18 13:19 Dose: 10 mg Metoclopramide HCl (Reglan Injection -) 10 mg IVPUSH Q6H PRN PRN Reason: NAUSEA Montelukast Sodium (Singulair -) 10 mg PO HS [facility] Ondansetron HCl (Zofran Injection) 4 mg IVPUSH Q4H PRN PRN Reason: NAUSEA AND/OR VOMITING Last Admin: 09/04/18 17:25 Dose: 4 mg Zolpidem Tartrate (Ambien -) 5 mg PO HS PRN PRN Reason: INSOMNIA Last Admin: 09/08/18 21:13 Dose: 5 mg - Objective Vital Signs: Vital Signs Temperature 98.7 F 09/09/18 08:00 Pulse Rate 101 H 09/09/18 08:00 Respiratory Rate 31 H 09/09/18 08:00 Blood Pressure 160/87 09/09/18 08:00 O2 Sat by Pulse Oximetry (%) 93 L 09/09/18 08:00 Constitutional: Yes: Well Nourished, No Distress, Calm, Obese Cardiovascular: Yes: Regular Rate and Rhythm Respiratory: Yes: Regular, SOB on Exertion Gastrointestinal: Yes: Normal Bowel Sounds, Soft, Abdomen, Obese, Tenderness ( incisional) Genitourinary: Yes: WNL Musculoskeletal: Yes: WNL Extremities: Yes: WNL Edema: No Peripheral Pulses WNL: Yes Wound/Incision: Yes: Dressing Dry and Intact Neurological: Yes: Alert, Oriented Psychiatric: Yes: Alert, Oriented Labs: CBC, BMP 09/09/18 05:30 09/09/18 05:30 INR, PTT INR 1.18 (0.83-1.09) H 09/05/18 23:15 Problem List - Problems (1) Hypoxia Assessment/Plan: -SpO2 94 on RA -Check Pre/post ambulatory SpO2 -Bronchodilators Code(s): R09.02 - HYPOXEMIA (2) S/P gastric surgery Assessment/Plan: -Tolerating clear liquids -Advance diet as tolerated -Mild incisional tenderness on ambulation -Tylenol PRN for pain Code(s): Z98.890 - OTHER SPECIFIED POSTPROCEDURAL STATES Assessment/Plan see problem list
[2018-09-09] MEDS ORDERED: PT OWN MED DRAWER 7, Y5N ONE ×3 (09:10→17:52)
[2018-09-09] MEDS: FAMOTIDINE 20 MG/50 ML IVPB 20 MG/50 ML MG IVPB SCH (09:13)
[2018-09-09] MEDS: LORATADINE 10 MG TABLET PO SCH (09:13)
[2018-09-09] MEDS: FLUTICASONE PROP 0.05% 16 GM NASAL SPRAY NS SCH (09:15)
[2018-09-09] MEDS ORDERED: guaiFENesin/D-METHORPHAN HB 1 EACH TAB.ER.12H PO SCH (10:00)
--- NOTE | 2018-09-09 10:45 | PN ---
Teaching Attending Note Name of Resident: Arian Ryan ATTENDING PHYSICIAN STATEMENT I saw and evaluated the patient. I reviewed the resident's note and discussed the case with the resident. I agree with the resident's findings and plan as documented. SUBJECTIVE: Pt seen and examined in the ICU. Abdominal pain controlled. Tolerating clears. No shortness of breath or chest pain. OBJECTIVE: Vital Signs Period Temp Pulse Resp BP Sys/Camara Pulse Ox Last 24 Hr 97.3 F-98.8 F 90-108 24-32 130-160/73-89 93-96 Intake & Output 09/06/18 09/07/18 09/08/18 09/09/18 23:59 23:59 23:59 23:59 Intake Total 6741 2840 1690 540 Output Total 4275 1430 330 Balance 2466 1410 1360 540 Weight 114.759 kg 116.256 kg 117.435 kg 114.714 kg Gen: NAD at rest Heart: RRR Lung: decreased breath sounds at the bases Abd: soft, mild tenderness Ext: no edema CBC, BMP 09/09/18 05:30 09/09/18 05:30 Active Medications Acetaminophen (Ofirmev Injection -) 1,000 mg IVPB Q6H PRN PRN Reason: PAIN LEVEL 1-5 Albuterol/Ipratropium (Duoneb -) 1 amp NEB RQID [facility] Last Admin: 09/09/18 08:30 Dose: 1 amp Fluticasone Propionate (Flonase -) 2 spray NS DAILY [facility] Last Admin: 09/09/18 09:15 Dose: 2 sprays Guaifenesin (Mucinex Dm -) 2 tablet PO BID [facility] Famotidine/Sodium Chloride (Pepcid 20 Mg Premixed Ivpb -) 20 mg in 50 mls @ 100 mls/hr IVPB BID [facility] Last Admin: 09/09/18 09:13 Dose: 100 mls/hr Piperacillin Sod/Tazobactam (Sod 3.375 gm/ Dextrose) 50 mls @ 100 mls/hr IVPB Q8H-IV [facility]; Protocol Last Admin: 09/09/18 09:14 Dose: 100 mls/hr Levothyroxine Sodium 25 mcg/ (Levothyroxine Sodium 112 mcg) 137 mcg PO DAILY@ 0700 [facility] Last Admin: 09/09/18 06:36 Dose: 137 mcg Loratadine (Claritin -) 10 mg PO DAILY [facility] Last Admin: 09/09/18 09:13 Dose: 10 mg Metoclopramide HCl (Reglan Injection -) 10 mg IVPUSH Q6H PRN PRN Reason: NAUSEA Montelukast Sodium (Singulair -) 10 mg PO HS [facility] Ondansetron HCl (Zofran Injection) 4 mg IVPUSH Q4H PRN PRN Reason: NAUSEA AND/OR VOMITING Last Admin: 09/04/18 17:25 Dose: 4 mg Zolpidem Tartrate (Ambien -) 5 mg PO HS PRN PRN Reason: INSOMNIA Last Admin: 09/08/18 21:13 Dose: 5 mg ASSESSMENT AND PLAN: Morbid Obesity s/p Laparoscopic Gastric Sleeve Syncope Acute Blood Loss Anemia Intra-Abdominal Hematoma s/p Laparoscopic Hematoma Evacuation Lactic Acidosis resolved Volume Overload Hypothyroidism - monitor H/H - pain control - incentive spirometry - PO per surgery - O2 to keep Spo2 >90% - ambulate - mechanical DVT prophylaxis - dispo per surgery
--- NOTE | 2018-09-09 11:28 | PN ---
Progress Note, Physician History of Present Illness: OOB IN CHAIR NO COMPLAINTS + COUGH NOTED AFEBRILE WBC DOWNWARD TRENDING 10k C/S NO GROWTH - Current Medication List Current Medications: Active Medications Acetaminophen (Ofirmev Injection -) 1,000 mg IVPB Q6H PRN PRN Reason: PAIN LEVEL 1-5 Albuterol/Ipratropium (Duoneb -) 1 amp NEB RQID [facility] Last Admin: 09/09/18 08:30 Dose: 1 amp Fluticasone Propionate (Flonase -) 2 spray NS DAILY [facility] Last Admin: 09/09/18 09:15 Dose: 2 sprays Guaifenesin (Mucinex Dm -) 2 tablet PO BID [facility] Famotidine/Sodium Chloride (Pepcid 20 Mg Premixed Ivpb -) 20 mg in 50 mls @ 100 mls/hr IVPB BID [facility] Last Admin: 09/09/18 09:13 Dose: 100 mls/hr Piperacillin Sod/Tazobactam (Sod 3.375 gm/ Dextrose) 50 mls @ 100 mls/hr IVPB Q8H-IV [facility]; Protocol Last Admin: 09/09/18 09:14 Dose: 100 mls/hr Levothyroxine Sodium 25 mcg/ (Levothyroxine Sodium 112 mcg) 137 mcg PO DAILY@ 0700 [facility] Last Admin: 09/09/18 06:36 Dose: 137 mcg Loratadine (Claritin -) 10 mg PO DAILY [facility] Last Admin: 09/09/18 09:13 Dose: 10 mg Metoclopramide HCl (Reglan Injection -) 10 mg IVPUSH Q6H PRN PRN Reason: NAUSEA Montelukast Sodium (Singulair -) 10 mg PO HS [facility] Ondansetron HCl (Zofran Injection) 4 mg IVPUSH Q4H PRN PRN Reason: NAUSEA AND/OR VOMITING Last Admin: 09/04/18 17:25 Dose: 4 mg Zolpidem Tartrate (Ambien -) 5 mg PO HS PRN PRN Reason: INSOMNIA Last Admin: 09/08/18 21:13 Dose: 5 mg - Objective Vital Signs: Vital Signs Temperature 98.5 F 09/09/18 10:00 Pulse Rate 18 L 09/09/18 10:57 Respiratory Rate 27 H 09/09/18 10:00 Blood Pressure 149/89 09/09/18 10:00 O2 Sat by Pulse Oximetry (%) 94 L 09/09/18 10:57 Constitutional: Yes: No Distress Eyes: Yes: Conjunctiva Clear Cardiovascular: Yes: Regular Rate and Rhythm, S1, S2 Respiratory: Yes: CTA Bilaterally Gastrointestinal: Yes: Normal Bowel Sounds, Soft, Abdomen, Obese. No: Tenderness Labs: CBC, BMP 09/09/18 05:30 09/09/18 05:30 INR, PTT INR 1.18 (0.83-1.09) H 09/05/18 23:15 Assessment/Plan POD #5 GASTRIC SLEEVE COMPLICATED BY HEMOPERITONEUM LEUKOCYTOSIS RESOLVING LACTIC ACIDOSIS RESOLVED SUBSTITUTE PO AUGMENTIN 875MG BID X 5D
--- NOTE | 2018-09-09 14:35 | PN ---
Progress Note, Physician History of Present Illness: seen and examined at bedside. no acute event overnight. off nasal canula saturating well on room air. tolerating clears. - Current Medication List Current Medications: Active Medications Acetaminophen (Ofirmev Injection -) 1,000 mg IVPB Q6H PRN PRN Reason: PAIN LEVEL 1-5 Albuterol/Ipratropium (Duoneb -) 1 amp NEB RQID [facility] Last Admin: 09/09/18 11:26 Dose: 1 amp Amoxicillin/Clavulanate Potassium (Augmentin - 875mg Tablet) 1 tab PO BID@0800, 1730 [facility] Fluticasone Propionate (Flonase -) 2 spray NS DAILY [facility] Last Admin: 09/09/18 09:15 Dose: 2 sprays Guaifenesin (Mucinex Dm -) 2 tablet PO BID [facility] Last Admin: 09/09/18 12:53 Dose: 2 tablet Famotidine/Sodium Chloride (Pepcid 20 Mg Premixed Ivpb -) 20 mg in 50 mls @ 100 mls/hr IVPB BID [facility] Last Admin: 09/09/18 09:13 Dose: 100 mls/hr Levothyroxine Sodium 25 mcg/ (Levothyroxine Sodium 112 mcg) 137 mcg PO DAILY@ 0700 [facility] Last Admin: 09/09/18 06:36 Dose: 137 mcg Loratadine (Claritin -) 10 mg PO DAILY [facility] Last Admin: 09/09/18 09:13 Dose: 10 mg Metoclopramide HCl (Reglan Injection -) 10 mg IVPUSH Q6H PRN PRN Reason: NAUSEA Montelukast Sodium (Singulair -) 10 mg PO HS [facility] Ondansetron HCl (Zofran Injection) 4 mg IVPUSH Q4H PRN PRN Reason: NAUSEA AND/OR VOMITING Last Admin: 09/04/18 17:25 Dose: 4 mg Zolpidem Tartrate (Ambien -) 5 mg PO HS PRN PRN Reason: INSOMNIA Last Admin: 09/08/18 21:13 Dose: 5 mg - Objective Vital Signs: Vital Signs Temperature 98.0 F 09/09/18 14:00 Pulse Rate 102 H 09/09/18 14:00 Respiratory Rate 22 H 09/09/18 14:00 Blood Pressure 154/81 09/09/18 14:00 O2 Sat by Pulse Oximetry (%) 95 09/09/18 14:00 Constitutional: Yes: Calm Cardiovascular: Yes: Regular Rate and Rhythm, S1, S2 Respiratory: Yes: CTA Bilaterally Gastrointestinal: Yes: Normal Bowel Sounds, Soft. No: Tenderness Edema: No Labs: CBC, BMP 09/09/18 05:30 09/09/18 05:30 INR, PTT INR 1.18 (0.83-1.09) H 09/05/18 23:15 Impression/Plan Impression/Plan: 53 year old female with PMH of hypothyroidism, was brought in from [facility] after a syncopal episode. Patient was noted to be anemic, and received pRBCs. CTAP showed hemoperitonuem with hematoma. #Cardio -Tachycardic - no ekg change, no symptoms, pt is baseline tachycardic #Pulmo -saturating well on room air #GI -POD 5: gastric sleeve surgery -POD 3: diagnostic laparoscopy, control of intra-abdominal hemorrhage. -pain control with Morphine 2mg q3 -Incentive spirometry -Monitor H/H -Clear liquid diet #Hematology -s/p 7 units pRBCs -Monitor H/H -transfuse PRN #Renal -renal function stable #ID -Leukocytosis, improving. Patient remains afebrile. Likely reactive -may transition to PO augmentin after discharge per ID #Endo -Hx of Hypothyroidism. Thyroglossal duct cyst removal -On home Synthroid 137mcg PO daily #FEN -Not on any standing fluids -routine bmp monitoring -Clear liquid diet #Prophylaxis -SCDs #Disposition -full code, patient is expected to be discharged later this evening after Dr. Longoria re-evaluates the patient. Arian Ryan MD ICU resident Visit type - Emergency Visit Emergency Visit: No - New Patient This patient is new to me today: No - Critical Care Critical Care patient: Yes Total Critical Care Time (in minutes): 35 Critical Care Statement: The care of this patient involved high complexity decision making to prevent further life threatening deterioration of the patient 's condition and/or to evaluate & treat vital organ system(s) failure or risk of failure.
[2018-09-09 15:27] VITALS: BMI 41.9
[2018-09-09] MEDS ORDERED: AMOX TR/POT CLAV 875MG/125MG TABLETS (FP) PO SCH (17:30)
[2018-09-09 18:05] VITALS: BP 152/80; PULSE 105; TEMP 98.1
--- NOTE | 2018-09-09 19:12 | PN ---
Progress Note (short form) - Note Progress Note: POD#3,5 Afebrile P-95-105 Pt doing well OOB-chair CrJ24-08% on RA P/E- Gen- decreased swelling, decreased edema Abd- midline trocar site less redness WBC-10.3 H/H-9.5/27.4 (stable) P- D/C pt home Cont clear liquids PO Augmentin F/U in 5 days
[2018-09-09] MEDS ORDERED: MONTELUKAST NA 10 MG TABLET PO SCH (22:00)
--- NOTE | 2018-09-12 13:04 | PATH ---
Surgical Pathology Report Patient Name: KURT ALAS [facility]. Rec. #: [id number] /Age/Gender: 1965 (Age: 53) / F Account: [id number] Location: ICU ADDICTION THERAPIST Taken: 09/04/2018 Received: 09/04/2018 Reported: 09/08/2018 Physicians: Joselito Longoria M.D. Specimen(s) Received A: GREATER CURVATURE STOMACH B: LIVER BIOPSY Clinical History Morbid obesity Final Diagnosis A. GREATER CURVATURE STOMACH, LAPAROSCOPIC VERTICAL SLEEVE GASTRECTOMY: SEGMENT OF STOMACH SHOWING MILD CHRONIC GASTRITIS. IMMUNOSTAINING IS NEGATIVE FOR H. PYLORI ORGANISMS. B. LIVER, BIOPSY: MILD STEATOHEPATITIS WITH DIFFUSE STEATOSIS (70%). TRICHROME STAIN SHOWS MILD PERIVENULAR AND PERIPORTAL FIBROSIS (STAGE 1/4). IRON STAIN IS NEGATIVE FOR SIDEROSIS. NEGATIVE FOR CHOLESTASIS, CHOLANGITIS/BILE DUCT INJURY, GRANULOMAS, OR MALIGNANCY. Comment: Subcapsular biopsy material. Biopsy shows steatohepatitis with mild pericellular inflammation, and focal ballooning degeneration of hepatocytes. Suggest clinical correlation. Electronically Signed Hannah Jackson M.D. Gross Description A. Received in formalin, labeled "greater curvature of stomach," is a 71 gram, 20.0 x 3.0 x 2.8 cm. portion of stomach with a stapled margin of resection. The serosa is perez-patrick with minimal attached fat. The mucosa is perez-pink with normal folds. No mucosal masses are identified. Website/Blog Editor sections are submitted in one cassette. B. Received in formalin labeled "liver biopsy," is a 2.2 x 1.3 x 1.0 cm perez portion of soft tissue, consistent with a liver biopsy. Website/Blog Editor sections are submitted in one cassette. /09/05/2018 saudi09/05/2018
== END 2018-09-09 19:40 | disposition home or self-care (01) | DRG 619 ==
LOC: FM/S 12:01 → JICU 09-05 22:18
PROVIDERS: ADMIT Surgery; ATTEND Surgery
PROC: 0FB24ZX Excision of Left Lobe Liver, Percutaneous Endoscopic Approach, Diagnostic (ICD-10-PCS; 2018-09-04)
PROC: 0DB64Z3 Excision of Stomach, Percutaneous Endoscopic Approach, Vertical (ICD-10-PCS; principal; 2018-09-04 15:46)
PROC: 30233N1 Transfusion of Nonautologous Red Blood Cells into Peripheral Vein, Percutaneous Approach (ICD-10-PCS; 2018-09-05)
PROC: 0W3P4ZZ Control Bleeding in Gastrointestinal Tract, Percutaneous Endoscopic Approach (ICD-10-PCS; 2018-09-06)
DX: E66.01 Morbid (severe) obesity due to excess calories (principal); K66.1 Hemoperitoneum; N17.9 Acute kidney failure, unspecified; E87.2 Acidosis; K91.841 Postprocedural hemorrhage of a digestive system organ or structure following other procedure; D62 Acute posthemorrhagic anemia; E03.9 Hypothyroidism, unspecified; I95.9 Hypotension, unspecified; R55 Syncope and collapse; R00.0 Tachycardia, unspecified; Y83.8 Other surgical procedures as the cause of abnormal reaction of the patient, or of later complication, without mention of misadventure at the time of the procedure; R16.0 Hepatomegaly, not elsewhere classified; Z68.41 Body mass index [BMI] 40.0-44.9, adult; E87.70 Fluid overload, unspecified; D72.829 Elevated white blood cell count, unspecified; R09.02 Hypoxemia
CPT/HCPCS: 36415; 36430; 36511; 71045-TC-FY; 71046-TC-FY; 71275-TC; 74177-TC; 74241-TC-FY; 80048; 80053; 81003; 82248; 82550; 82962; 83036; 83605; 83735; 84100; 84443; 84484; 85025; 85027; 85379; 85610; 85730; 86850; 86900; 86901; 86922; 87040; 87086; 88305-TC; 88313-TC; 93005; 93306-TC; 93970-TC; 94002; 94640; 94760; 94761; 97116-GP; 97161-GP; J7030; P9038; P9058; Q9967

== ENCOUNTER 2018-09-30 16:40 | Inpatient (IN) | payer BC | END 2018-10-03 18:04 | disposition home or self-care (01) | LOC: J7W 10-02 21:54 → FER 16:40 → FM/S 21:08 ==

== ENCOUNTER → 2018-10-05 | Day surgery (SDC) | payer BC | END | disposition home or self-care (01) | LOC: JRADIR 13:12 | PROVIDERS: ATTEND Radiology Diagnostic Radiology | PROC: BW11YZZ Fluoroscopy of Abdomen and Pelvis using Other Contrast (ICD-10-PCS; principal; 2018-10-05) | DX: K65.1 Peritoneal abscess (principal) | CPT/HCPCS: 49424; 76080-TC-FY ==

== ENCOUNTER 2023-10-20 14:59 | Emergency (ER) | payer BC ==
[2023-10-20 15:25] VITALS: BP 143/92; PULSE 101; RESP 16; TEMP 98.3; BMI 32.4
[2023-10-20] MEDS ORDERED: RABIES VACCINE (PCEC)/PF 2.5 UNIT/VIAL IM ONE (15:48)
[2023-10-20] MEDS ORDERED: DIPHTH,PERTUSS(ACELL),TET 0.5 ML DISP.SYRIN IM ONE (15:48)
[2023-10-20] MEDS ORDERED: AMOX TR/POT CLAV 875MG/125MG TABLETS (FP) ONE (15:48)
[2023-10-20] MEDS ORDERED: RABIES IMMUNE GLOBULIN/PF 300 UNIT/ML (5 ML) VIAL IM ONE (15:49)
[2023-10-20] MEDS: AMOX TR/POT CLAV 875MG/125MG TABLETS (FP) PO ONE (16:10)
[2023-10-20] MEDS: RABIES IMMUNE GLOBULIN 300 UNITS/1 ML VIAL IM ONE (16:15)
[2023-10-20] MEDS: RABIES VACCINE (PCEC)/PF 2.5 UNIT/VIAL IM ONE (16:25)
[2023-10-20] MEDS: DIPHTH,PERTUSS(ACELL),TET 0.5 ML DISP.SYRIN IM ONE (16:27)
== END 2023-10-20 16:45 | disposition home or self-care (01) ==
LOC: FER 14:59
PROC: 3E0234Z Introduction of Serum, Toxoid and Vaccine into Muscle, Percutaneous Approach (ICD-10-PCS; principal; 2023-10-20)
DX: S81.851A Open bite, right lower leg, initial encounter (principal); Z29.14 Encounter for prophylactic rabies immune globulin; W55.01XA Bitten by cat, initial encounter; Y93.01 Activity, walking, marching and hiking
CPT/HCPCS: 90375; 90675; 90715; 99284-25

== ENCOUNTER 2023-10-23 15:48 | Emergency (ER) | payer BC ==
[2023-10-23 16:00] VITALS: BP 143/75; PULSE 73; RESP 20; TEMP 98.5; BMI 32.4
[2023-10-23] MEDS: RABIES VACCINE (PCEC)/PF 2.5 UNIT/VIAL IM ONE (16:00)
[2023-10-23] MEDS ORDERED: RABIES VACCINE (PCEC)/PF 2.5 UNIT/VIAL IM ONE (16:06)
== END 2023-10-23 16:08 | disposition home or self-care (01) ==
LOC: FER 15:48
PROC: 3E0234Z Introduction of Serum, Toxoid and Vaccine into Muscle, Percutaneous Approach (ICD-10-PCS; principal; 2023-10-23)
DX: Z29.14 Encounter for prophylactic rabies immune globulin (principal)
CPT/HCPCS: 90675; 99282-25

== ENCOUNTER 2023-10-27 12:28 | Emergency (ER) | payer BC ==
[2023-10-27] MEDS ORDERED: RABIES VACCINE (PCEC)/PF 2.5 UNIT/VIAL IM ONE (12:34)
[2023-10-27] MEDS: RABIES VACCINE (PCEC)/PF 2.5 UNIT/VIAL IM ONE (12:42)
[2023-10-27 13:21] VITALS: BP 126/81; PULSE 69; RESP 18; TEMP 98.8; BMI 32.4
== END 2023-10-27 12:50 | disposition home or self-care (01) ==
LOC: FER 12:28
PROC: 3E0234Z Introduction of Serum, Toxoid and Vaccine into Muscle, Percutaneous Approach (ICD-10-PCS; principal; 2023-10-27)
DX: S81.851D Open bite, right lower leg, subsequent encounter (principal); Z29.14 Encounter for prophylactic rabies immune globulin; W55.01XD Bitten by cat, subsequent encounter
CPT/HCPCS: 90675; 99281-25

== ENCOUNTER 2023-11-03 12:39 | Emergency (ER) | payer BC ==
[2023-11-03] MEDS ORDERED: RABIES VACCINE (PCEC)/PF 2.5 UNIT/VIAL IM ONE (12:50)
[2023-11-03 12:54] VITALS: BP 150/79; PULSE 74; RESP 15; TEMP 98.4; BMI 32.4
[2023-11-03] MEDS: RABIES VACCINE (PCEC)/PF 2.5 UNIT/VIAL IM ONE (12:57)
== END 2023-11-03 13:03 | disposition home or self-care (01) ==
LOC: FER 12:39
PROC: 3E0234Z Introduction of Serum, Toxoid and Vaccine into Muscle, Percutaneous Approach (ICD-10-PCS; principal; 2023-11-03)
DX: Z29.14 Encounter for prophylactic rabies immune globulin (principal)
CPT/HCPCS: 90675; 99281-25